=== PATIENT | male | born 1940 | race Hispanic/Latino ===

== ENCOUNTER → 2018-12-15 | Day surgery (SDC) | payer MEDICARE, OTHER ==
[2018-12-06 17:16] LABS: BASOPHILS # (AUTO) 0.1 (0.0-0.1); BASOPHILS % 0.9 % (0.0-1.0); EOSINOPHILS # (AUTO) 0.1 (0.0-0.4); EOSINOPHILS % 1.2 % (0.0-6.0); HEMATOCRIT 41.6 % (34.2-44.1); LYMPHOCYTES # (AUTO) 1.3 (1.0-3.2); LYMPHOCYTES % 12.1 % (18.0-39.1); MEAN CORPUSCULAR HEMOGLOBIN 30.7 pg (28-32); MEAN CORPUSCULAR HGB CONC 33.7 g/dL (31-35); MEAN CORPUSCULAR VOLUME 91.2 fL (81-99); MONOCYTES # (AUTO) 0.9 (0.2-0.8); MONOCYTES % 8.3 % (4.4-11.3); NEUTROPHILS % 77.1 % (38.7-80.0); PLATELET COUNT 268 x10e3/uL (140-360); RED BLOOD COUNT 4.56 x10e6/uL (3.6-5.1); RED CELL DISTRIBUTION WIDTH 12.6 % (11.7-14.4)
[2018-12-06 17:31] LABS: ANION GAP 15.1 mmol/L (8-16); BLOOD UREA NITROGEN 13 mg/dL (7-26); BUN/CREATININE RATIO 14 (6-25); CALCIUM 9.3 mg/dL (8.4-10.2); CARBON DIOXIDE 23 mmol/L (22-29); CHLORIDE 96 mmol/L (98-107); EST GLOMERULAR FILTRATION RATE > 60 ML/MIN (60-); GLUCOSE 252 mg/dL (74-118); POTASSIUM 4.1 mmol/L (3.5-5.1); SODIUM 130 mmol/L (136-145)
[~2018-12-15] MED LIST: ASPIR 8181 MG PO; BALANCED SALT SOLN (OPTH) 15 ML BTL IO ONE; BUPIVACAINE HC 0.75% PF 10ML VIAL INJ ONE; CHONDR SU A NA/HYALUR SOD 1 EACH KIT IO ONE; CO Q10200 MG PO; CYCLOPENTOLATE HCL 2% OPTH SOLN 2 ML BTL OP ONE; EPINEPHRINE HCL 1:1000 1ML 1 MG/ML AMP ONE; GATIFLOXACIN(OPTH) 5 ML LIQD ONE; GLYBURIDE5 MG PO; HEMOCYTE PLUS1 EACH PO; LIDOCAINE 2% /EPINEPHRINE 20 ML SDV INJ ONE; LIDOCAINE HCL 2% LOCAL INJ 5 ML SDV VIAL INJ ONE; LIDOCAINE HCL-PF 4% 40 MG/1 ML 5ML AMP ONE; LIPITOR20 MG PO; MIDAZOLAM HCL 2 MG/2 ML VIAL ONE; OMEGA 3 1,0001 EACH PO; PHENYLEPHRINE HCL 2 ML DROPS ONE; PILOCARPINE HCL(OPTH) 15 ML LIQD ONE; PLAVIX75 MG PO; POVIDONE IODINE 5% (OPTH) 30 ML BTL ONE; PRECOSE25 MG PO; PROPOFOL IV EMULSION 10 MG/ML 20 ML VIAL ONE; SIMVASTATIN40 MG PO; THIAMINE PO; TOBRAMYCIN/DEXAMETHASONE(OPTH) 3.5 GM TUBE ONE; TYLENOL WITH C1 EACH PO; VITAMIN D1000 UNI1 PO; ZANTAC300 MG PO
--- OUTSIDE RECORDS SUMMARY | 2018-12-15 07:20 | XMS REPORT | Clinical Summary ---
Author Author [facility] Organization [facility] Address Unknown Phone Unavailable Care Team Providers Care Charge Rn Name Role Phone Chin Christian MD PCP Allergies No Known Allergies Medications End Date Status Medication Sig Dispensed Refills Start Date Active aspirin-calcium carbonate Take by 0 81 mg-300 mg calcium(777 mouth. mg) tablet Active atorvastatin (LIPITOR) 40 0 MG tablet 8 Active ACCU-CHEK ANA PLUS TEST 0 STRP strip test strips 8 Active clopidogrel (PLAVIX) 75 0 mg tablet 8 Active glyBURIDE (DIABETA) 5 MG TAKE ONE (1) 0 tablet TABLET(S) BY 8 MOUTH EVERY TWELVE HOURS. Active glyburide-metformin TAKE TWO (2) 0 (GLUCOVANCE) 2.5-500 mg TABLET(S) BY 2 per tablet MOUTH TWICE A DAY WITH FOOD. Active LEVEMIR FLEXTOUCH U-100 0 INSULN 100 unit/mL (3 mL) 8 insulin pen Active insulin GLARGINE (LANTUS 10 units 0 U-100 INSULIN) 100 daily before unit/mL injection (vial) bed. Active HEMOCYTE-PLUS 106 mg TAKE ONE (1) 0 iron- 1 mg capsule CAPSULE(S) BY 8 MOUTH ONCE A DAY. Active lisinopril TAKE ONE (1) 0 (PRINIVIL,ZESTRIL) 5 mg TABLET(S) BY 3 tablet MOUTH ONCE A DAY. Active simvastatin (ZOCOR) 40 MG 0 tablet 8 Active Problems No known active problems Encounters Care Team Description Date Type Specialty Arin Roa MD Barotrauma, sequela (Primary Dx); Sensorineural hearing loss, bilateral 10/17/2018 Office Visit Otolaryngology after 12/14/2017 Social History Date Tobacco Use Types Packs/Day Years Used Never Smoker Smokeless Tobacco: Never Used Alcohol Use Drinks/Week oz/Week Comments No Alcohol Habits Answer Date Recorded How often do you have a drink containing alcohol? Never 10/17/2018 How many drinks containing alcohol do you have on Not asked a typical day when you are drinking? How often do you have six or more drinks on one Not asked occasion? Sex Assigned at Date Recorded Not on file Industry Job Start Date Occupation Not on file Not on file Not on file Travel End Travel History Travel Start No recent travel history available. Last Filed Vital Signs Time Taken Vital Sign Reading 10/17/2018 10:17 AM MD OPHTHALMOLOGIST Blood Pressure 158/81 10/17/2018 10:17 AM MD OPHTHALMOLOGIST Pulse 83 - Temperature - - Respiratory Rate - - Oxygen Saturation - - Inhaled Oxygen - Concentration 10/17/2018 10:17 AM MD OPHTHALMOLOGIST Weight 66.2 kg (146 lb) 10/17/2018 10:17 AM MD OPHTHALMOLOGIST Height 165.1 cm (5' 5") 10/17/2018 10:17 AM MD OPHTHALMOLOGIST Body Mass Index 24.3 Plan of Treatment Health Maintenance Due Date Last Done Comments SHINGLES VACCINES (1 of 1991 2) PNEUMOCOCCAL-13 2006 INFLUENZA VACCINE 06/08/2018 08/08/2012 PNEUMOCOCCAL Completed 02/11/2007 POLYSACCHARIDE VACCINE AGE 65 AND OVER Results Not on fileafter 12/14/2017 Insurance Payer Benefit Subscriber ID Type Phone Address Plan / Group [employer] xxxxxxxxx O [facility] Advance Directives Patient has advance care planning documents on file. For more information, candi ortiz contact: Ari Young [address] [place] [address]
--- OUTSIDE RECORDS SUMMARY | 2018-12-15 07:21 | XMS REPORT ---
Author Author Chin Christian [facility] eClinicalWorks Address Unknown Phone Unavailable Care Team Providers Care Coverstitch Elastic Attacher Name Role Phone Chin Christian CP Unavailable Allergies, Adverse Reactions, Alerts Substance Reaction Event Type N.K.D.A. 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 Active Problem Type 2 diabetes 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 Active Assessment Peripheral vascular disease in diabetes mellitus E11.51 Active Problem Peripheral vascular disease in diabetes mellitus E11.51 Active Problem S/P AVR (aortic valve replacement) Z95.2 Active Problem Nonrheumatic aortic valve stenosis I35.0 Active Problem 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 Active Problem Ulcer L98.499 Active Problem Essential (primary) hypertension I10 Active Problem Diverticulosis of large intestine without hemorrhage K57.30 Active Assessment Essential (primary) hypertension I10 Active Assessment Gangrene of right foot I96 Active Problem Coronary artery disease involving [place] coronary artery, angina presence unspecified, unspecified whether [place] or transplanted heart I25.10 Active Problem 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 Active Problem Left bundle branch block I44.7 Active Problem Hx of heart artery stent Z95.5 Active Problem 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 by examination, associated with type 2 diabetes mellitus E11.319 Active Problem Aortic stenosis I35.0 Active Medications Medication Code System Code Instructions Start Date End Date Status Dosage Lantus SoloStar [facility] 14340787836 100 UNIT/ML Subcutaneous once every night Active inject 15 units Precose [facility] 12619431319 25 MG Orally tid ac Active as directed Co Q 10 [facility] [address]271 200 MG Orally Once a day Active 1 capsule with a meal Aspirin ND 89429376514 325 MG Orally Once a day Active 1 tablet Zantac [facility] 38212786921 150 MG Orally twice a day (bid) Jun 21, 2017 Active 1 tablet at bedtime GlyBURIDE [facility] 99917394506 5 MG Active TAKE TWO (2) TABLET(S) BY MOUTH TWICE A DAY. Thiamine HCl ND 0 500 MG Orally Active not defined Nitroglycerin [facility] 35981499565 0.2 MG/HR Transdermal Sep 21, 2017 Active as directed Tramadol HCl [facility] 59237424402 50 MG Orally as needed (prn) Active 1 tablet GlyBURIDE [facility] [address]-95 10 mg PO twice a day (bid) Active 1 tablet Lipitor [facility] 42022299619 40 MG Orally Once a day Oct 08, 2017 Active 1 tablet Cholecalciferol [facility] [address]-13 1000 UNIT Orally Once a day Active 1 capsule [place] 3 [facility] 78562319317 1000 MG Orally Once a day Active 1 capsule Metoprolol Tartrate [facility] 46430564028 25 MG Orally Twice a day Active TAKE ONE (1) TABLET(S) BY MOUTH EVERY TWELVE HOURS. Accu-Chek Softclix Lancets [facility] 49306859791 - Active USE INSTRUCTED THREE TIMES DAILY Clopidogrel Bisulfate [facility] 16875049727 75 MG Orally Once a day Active 1 tablet Vital Signs Date/Time: 2017 BMI 26.20 Index Weight 159.4 lbs Height 65.4 in Temperature 98.2 F Cardiac Monitoring Heart Rate 97 /min Blood Pressure Diastolic 62 mm Hg Blood Pressure Systolic 130 mm Hg Results No Known Results Summary Purpose eClinicalWorks Submission
--- OUTSIDE RECORDS SUMMARY | 2018-12-15 07:21 | XMS REPORT ---
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 Active Problem Ulcer L98.499 Active Problem Type 2 diabetes 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 Active Problem 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 Problem Vertebral artery stenosis with cerebral infarction I63.219 Active Problem Nonrheumatic aortic valve stenosis I35.0 Active Problem S/P AVR (aortic valve replacement) Z95.2 Active Problem 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 by examination, associated with type 2 diabetes mellitus E11.319 Active Problem 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 [address]-29 2 % Externally TWICE a day Jun 23, 2017 Jul 07, 2017 Active 1 application to affected area Results No Known Results Summary Purpose eClinicalWorks Submission
--- OUTSIDE RECORDS SUMMARY | 2018-12-15 07:21 | XMS REPORT ---
Author Author Chin Christian [facility] eClinicalWorks Address Unknown Phone Unavailable Care Team Providers Care Civil Draftsman Name Role Phone Chin Christian CP Unavailable [...] limited to breakdown of skin L97.501 Active Assessment Non-pressure chronic ulcer of other part of [...] S/P AVR (aortic valve replacement) Z95.2 Active Assessment Essential (primary) hypertension I10 Active Assessment Cellulitis of right toe L03.031 Active Assessment Type 2 diabetes 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 Active Assessment Coronary artery disease involving [place] coronary artery, angina presence unspecified, unspecified whether [place] or transplanted heart I25.10 Active Problem 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 by examination, associated with type 2 diabetes mellitus E11.319 Active Problem 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 Active Problem Diverticulosis of large intestine without hemorrhage K57.30 Active Problem Coronary artery disease involving [place] coronary artery, angina presence unspecified, unspecified whether [place] or transplanted heart I25.10 Active Problem Left bundle branch block I44.7 Active Problem Essential (primary) hypertension I10 Active Medications Medication Code System Code Instructions Start Date End Date Status Dosage Naprosyn [facility] [address]-14 500 MG Orally every 12 hrs Jun 21, 2017 Jul 06, 2017 Active 1 tablet as needed Keflex [facility] [address]-45 500 MG Orally three times a day (tid) Jun 21, 2017 Jul 01, 2017 Active 1 capsule Clopidogrel Bisulfate [facility] [address]-52 75 MG Orally Once a day Active 1 tablet Simvastatin [facility] 53961402275 40 MG Active TAKE ONE (1) TABLET(S) BY MOUTH EVERY NIGHT. Cholecalciferol [facility] [address]-17 1000 UNIT Orally Once a day Active 1 capsule GlyBURIDE [facility] 24708356843 5 MG Orally Once a day Active TAKE TWO (2) TABLET(S) BY MOUTH TWICE A DAY. Thiamine HCl [facility] 0 500 MG Orally Active not defined [place] 3 [facility] [address]60 1000 MG Orally Once a day Active 1 capsule GlyBURIDE [facility] [address]-58 10 mg PO twice a day (bid) Active 1 tablet Zantac [facility] [address]-62 150 MG Orally twice a day (bid) Jun 21, 2017 Active 1 tablet at bedtime Precose [facility] 65435224193 25 MG Orally tid ac Active as directed Lantus SoloStar [facility] [address]-12 100 UNIT/ML Subcutaneous once every night Active inject 15 units Tramadol HCl [facility] [address]-77 50 MG Orally as needed (prn) Active 1 tablet Co Q 10 [facility] [address]6727-[address]683 200 MG Orally Once a day Active 1 capsule with a meal Accu-Chek Softclix Lancets [facility] 21700922711 - Active USE INSTRUCTED THREE TIMES DAILY Metoprolol Tartrate [facility] 05949335847 25 MG Orally Twice a day Active TAKE ONE (1) TABLET(S) BY MOUTH EVERY TWELVE HOURS. Aspirin [facility] [address]-75 325 MG Orally Once a day Active 1 tablet Vital Signs Date/Time: Jun 21, 2017 BMI 26.30 Index Weight 160.0 lbs Height 65.4 in Temperature 98.0 F Cardiac Monitoring Heart Rate 81 /min Blood Pressure Diastolic 69 mm Hg Blood Pressure Systolic 133 mm Hg Results No Known Results Summary Purpose eClinicalWorks Submission
--- OUTSIDE RECORDS SUMMARY | 2018-12-15 07:21 | XMS REPORT ---
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 Problem Peripheral vascular disease in diabetes mellitus E11.51 Active Problem Gangrene of right foot I96 Active Problem 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 Active Problem Ulcer L98.499 Active Problem S/P AVR (aortic valve replacement) Z95.2 Active Problem Type 2 diabetes 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 Active Problem 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 Active Problem Diverticulosis of large intestine without hemorrhage K57.30 Active Problem Left bundle branch block I44.7 Active Problem Essential (primary) hypertension I10 Active Problem 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 Active Problem Hx of heart artery stent Z95.5 Active Problem 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 by examination, associated with type 2 diabetes mellitus E11.319 Active Problem Aortic stenosis I35.0 Active Problem Coronary artery disease involving [place] coronary artery, angina presence unspecified, unspecified whether [place] or transplanted heart I25.10 Active Problem Mixed hyperlipidemia E78.2 Active Medications Medication Code System Code Instructions Start Date End Date Status Dosage Precose ND 41501733542 25 MG Orally tid ac Active as directed GlyBURIDE N[facility] 52419605141 5 MG Active TAKE ONE (1) TABLET(S) BY MOUTH EVERY TWELVE HOURS. Results No Known Results Summary Purpose eClinicalWorks Submission
--- OUTSIDE RECORDS SUMMARY | 2018-12-15 07:21 | XMS REPORT ---
Author Author Chin Christian [facility] eClinicalWorks Address Unknown Phone Unavailable Care Team Providers Care Family Court Justice Name Role Phone Chin Christian CP Unavailable Allergies, Adverse Reactions, Alerts Substance Reaction Event Type N.K.D.A. 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 Assessment Nonrheumatic aortic valve stenosis I35.0 Active Assessment Vertebral artery stenosis with cerebral infarction I63.219 Active Assessment Hx of heart artery stent Z95.5 Active Assessment Mixed hyperlipidemia E78.2 Active Assessment Aortic stenosis I35.0 Active Assessment Diverticulosis of large intestine without hemorrhage K57.30 Active Problem Aortic stenosis I35.0 Active Assessment Left bundle branch block I44.7 Active Problem Mixed hyperlipidemia E78.2 Active Assessment 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 by examination, associated with type 2 diabetes mellitus E11.319 Active Problem Vertebral artery stenosis with cerebral infarction I63.219 Active Problem Nonrheumatic aortic valve stenosis I35.0 Active Problem 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 Problem Peripheral vascular disease in diabetes mellitus E11.51 Active Problem Gangrene of right foot I96 Active Assessment Essential (primary) hypertension I10 Active Assessment Coronary artery disease involving [place] coronary artery, angina presence unspecified, unspecified whether [place] or transplanted heart I25.10 Active Problem 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 Active Assessment 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 Active Problem Ulcer L98.499 Active Problem S/P AVR (aortic valve replacement) Z95.2 Active Problem Type 2 diabetes 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 Active Problem 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 Active Assessment 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 Active Problem Diverticulosis of large intestine without hemorrhage K57.30 Active Assessment Peripheral vascular disease in diabetes mellitus E11.51 Active Problem Left bundle branch block I44.7 Active Assessment Encounter for general adult medical examination with abnormal findings Z00.01 Active Problem Essential (primary) hypertension I10 Active Problem 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 85792229176 325 MG Orally Once a day Active 1 tablet GlyBURIDE [facility] [address]-50 10 mg PO twice a day (bid) Active 1 tablet Lipitor [facility] 43573348233 40 MG Orally Once a day Oct 08, 2017 Active 1 tablet Clopidogrel Bisulfate [facility] 55972232388 75 MG Orally Once a day Active 1 tablet GlyBURIDE [facility] [address]-92 5 MG twice a day (bid) Active not defined Metoprolol Tartrate [facility] 24756916454 25 MG Orally Twice a day Active TAKE ONE (1) TABLET(S) BY MOUTH EVERY TWELVE HOURS. Zantac [facility] 12549917718 150 MG Orally twice a day (bid) Jun 21, 2017 Active 1 tablet at bedtime Precose [facility] 85809514030 25 MG Orally tid ac Active as directed [place] [address] [facility] 04826019577 1000 MG Orally Once a day Active 1 capsule Cholecalciferol [facility] [address]-63 1000 UNIT Orally Once a day Active 1 capsule BD Insulin Syringe Ultrafine [facility] 16602715684 31G X 5/16 intramuscularly twice a day (bid) Nov 26, 2017 Active as directed Lantus SoloStar [facility] 15778771496 100 UNIT/ML Subcutaneous once every night Active inject 15 units Thiamine HCl [facility] 0 500 MG Orally Active not defined Nitroglycerin [facility] 81847778458 0.2 MG/HR Transdermal Sep 21, 2017 Active as directed Tramadol HCl [facility] 06213257331 50 MG Orally as needed (prn) Active 1 tablet Accu-Chek Softclix Lancets [facility] 10842366407 - Active USE INSTRUCTED THREE TIMES DAILY Co Q 10 NDC 62146-[address]25 200 MG Orally Once a day Active 1 capsule with a meal Vital Signs Date/Time: Dec 06, 2017 BMI 24.31 Index Weight 147.9 lbs Height 65.4 in Temperature 98.0 F Cardiac Monitoring Heart Rate 101 /min Blood Pressure Diastolic 63 mm Hg Blood Pressure Systolic 115 mm Hg Results No Known Results Summary Purpose eClinicalWorks Submission
--- OUTSIDE RECORDS SUMMARY | 2018-12-15 07:21 | XMS REPORT ---
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 Problem Vertebral artery stenosis with cerebral infarction I63.219 Active Problem Gangrene of right foot I96 Active Problem Type 2 diabetes 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 Active Problem Peripheral vascular disease in diabetes [...] K57.30 Active Problem Coronary artery disease involving [place] coronary artery, angina presence unspecified, unspecified whether [place] or transplanted heart I25.10 Active Problem Diabetic [...] Instructions Start Date End Date Status Dosage BD Insulin Syringe Ultrafine [facility][NOTE 3] 25345064948 31G X 5/16" 0.5 ML intramuscularly twice a day (bid) Nov 26, 2017 Active as directed Results No Known Results Summary Purpose eClinicalWorks Submission
--- OUTSIDE RECORDS SUMMARY | 2018-12-15 07:21 | XMS REPORT ---
Author Author Chin Christian [facility] eClinicalWorks Address Unknown Phone Unavailable Care Team Providers Care Criminalist Technician Name Role Phone Chin Christian CP Unavailable Allergies, Adverse Reactions, Alerts Substance Reaction Event Type N.K.D.A. 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 Problem 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 by examination, associated with type 2 diabetes mellitus E11.319 Active Assessment Vertebral artery stenosis with cerebral infarction I63.219 Active Problem 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 Active Problem Essential (primary) hypertension I10 Active Problem Coronary artery disease involving [place] coronary artery, angina presence unspecified, unspecified whether [place] or transplanted heart I25.10 Active Problem S/P AVR (aortic valve replacement) Z95.2 Active Problem 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 Assessment Aortic stenosis I35.0 Active Assessment Mixed hyperlipidemia E78.2 Active Problem Nonrheumatic aortic valve stenosis I35.0 Active Assessment Hx of heart artery stent Z95.5 Active Problem Mixed hyperlipidemia E78.2 Active Problem Hx of heart artery stent Z95.5 Active Problem Vertebral artery stenosis with cerebral infarction I63.219 Active Problem Aortic stenosis I35.0 Active Assessment 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 by examination, associated with type 2 diabetes mellitus E11.319 Active Assessment 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 Active Assessment Diverticulosis of large intestine without hemorrhage K57.30 Active Assessment Left bundle branch block I44.7 Active Assessment Nonrheumatic aortic valve stenosis I35.0 Active Problem Diverticulosis of large intestine without hemorrhage K57.30 Active Assessment Coronary artery disease involving [place] coronary artery, angina presence unspecified, unspecified whether [place] or transplanted heart I25.10 Active Assessment Essential (primary) hypertension I10 Active Medications Medication Code System Code Instructions Start Date End Date Status Dosage Cholecalciferol [facility] [address]-06 1000 UNIT Orally Once a day Active 1 capsule Clopidogrel Bisulfate [facility] [address]-82 75 MG Orally Once a day Active 1 tablet Lantus SoloStar [facility] [address]-59 100 UNIT/ML Subcutaneous once every night Active inject 10 units Simvastatin [facility] 48527662866 40 MG Active TAKE ONE (1) TABLET(S) BY MOUTH EVERY NIGHT. Furosemide [facility] [address]-84 20 mg Orally Once a day Active 1 tablet aspirin 81 mg tablet [facility] 0 81 by oral route Nov 30, 2012 Active take Acarbose [facility] [address]-16 25 MG Orally three times a day (tid) Active 1 tablet [place] 3 [facility] [address]483 1000 MG Orally Once a day Active 1 capsule Precose [facility] 76411355205 25 MG Orally tid ac Active as directed Thiamine HCl [facility] 0 500 MG Orally Active not defined Pen [place] [facility] [address]-72 31G X 6 MM SQ once a day Dx: E11.9 Jul 17, 2016 Active Inject Carvedilol [facility] [address]-11 12.5 MG Orally twice a day (bid) Active 1 tablet Isosorbide Dinitrate [facility] [address]-16 30 MG Orally Twice a day Active 1 tablet Clopidogrel Bisulfate [facility] [address]-45 75 MG Orally Once a day Active 1 tablet Aspirin [facility] [address]-92 325 MG Orally Once a day Active 1 tablet Metoprolol Tartrate [facility] [address]-03 25 MG Orally Twice a day Active 1 tablet with food Vitamin B-12 [facility] [address]-54 500 MCG Orally Once a day Active 1 tablet GlyBURIDE [facility] [address]-71 10 mg PO twice a day (bid) Active 1 tablet Tramadol HCl [facility] [address]-20 50 MG Orally as needed (prn) Active 1 tablet Accu-Chek Polina Plus [facility] 83472235501 Active USE DIRECTED THREE TIMES A DAY. Januvia [facility] [address]-81 100 MG twice a day (bid) Active 2 tablets Zantac [facility] [address]-95 150 MG Orally Twice a day January 30, 2016 Active 1 tablet Co Q 10 [facility] 9[address]375 200 MG Orally Once a day Active 1 capsule with a meal Levemir FlexTouch [facility] [address]-42 100 UNIT/ML 10 units Subcutaneous once every night Jul 03, 2016 Active as directed Accu-Chek Polina Plus [facility] [address]-73 . as directed Active USE DIRECTED THREE TIMES A DAY. Vital Signs Date/Time: February 04, 2017 BMI 26.17 Index Weight 159.2 lbs Height 65.4 in Temperature 98.3 F Cardiac Monitoring Heart Rate US ALL /min Blood Pressure Diastolic 55 mm Hg Blood Pressure Systolic 108 mm Hg Results No Known Results Summary Purpose eClinicalWorks Submission
--- OUTSIDE RECORDS SUMMARY | 2018-12-15 07:21 | XMS REPORT ---
Author Author Chin Christian [facility] eClinicalWorks Address Unknown Phone Unavailable Care Team Providers Care Rn Telephonic Name Role Phone Chin Christian CP Unavailable Allergies, Adverse Reactions, Alerts Substance Reaction Event Type N.K.D.A. 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 Active Problem 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 Problem Vertebral artery stenosis with cerebral infarction I63.219 Active Problem S/P AVR (aortic valve replacement) Z95.2 Active Problem Nonrheumatic aortic valve stenosis I35.0 Active Assessment Essential (primary) hypertension I10 Active Assessment Ischemic foot I99.8 Active Assessment 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 Active Assessment Coronary artery disease involving [place] coronary artery, angina presence unspecified, unspecified whether [place] or transplanted heart I25.10 Active Problem Left bundle branch block I44.7 Active Problem 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 by examination, associated with type 2 diabetes mellitus E11.319 Active Problem Essential (primary) hypertension I10 Active Problem Coronary artery disease involving [place] coronary artery, angina presence unspecified, unspecified whether [place] or transplanted heart I25.10 Active Problem Diverticulosis of large intestine without hemorrhage K57.30 Active Problem 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 Cholecalciferol [facility] [address]-54 1000 UNIT Orally Once a day Active 1 capsule Precose [facility] 98943673937 25 MG Orally tid ac Active as directed Metoprolol Tartrate [facility] 28931840546 25 MG Orally Twice a day Active TAKE ONE (1) TABLET(S) BY MOUTH EVERY TWELVE HOURS. Co Q 10 [facility] [address]30 200 MG Orally Once a day Active 1 capsule with a meal Zantac [facility] 08015120428 150 MG Orally twice a day (bid) Jun 21, 2017 Active 1 tablet at bedtime Clopidogrel Bisulfate [facility] 85481099409 75 MG Orally Once a day Active 1 tablet Simvastatin [facility] 44434279037 40 MG Active TAKE ONE (1) TABLET(S) BY MOUTH EVERY NIGHT. Lantus SoloStar [facility] 48176229460 100 UNIT/ML Subcutaneous once every night Active inject 15 units Aspirin [facility] 22227726359 325 MG Orally Once a day Active 1 tablet Thiamine HCl ND 0 500 MG Orally Active not defined Accu-Chek Softclix Lancets [facility] 90014350378 - Active USE INSTRUCTED THREE TIMES DAILY Nitroglycerin [facility] 64895066856 0.2 MG/HR Transdermal Sep 21, 2017 Active as directed [place] 3 [facility] 71665511807 1000 MG Orally Once a day Active 1 capsule Vital Signs Date/Time: Sep 21, 2017 BMI 26.23 Index Weight 159.6 lbs Height 65.4 in Temperature 97.4 F Cardiac Monitoring Heart Rate 94 /min Blood Pressure Diastolic 64 mm Hg Blood Pressure Systolic 123 mm Hg Results No Known Results Immunizations Vaccine Administration Date Influenza Vaccine Sep 21, 2017 Summary Purpose eClinicalWorks Submission
--- OUTSIDE RECORDS SUMMARY | 2018-12-15 07:21 | XMS REPORT ---
Author Author Chin Christian [facility] eClinicalWorks Address Unknown Phone Unavailable Care Team Providers Care Child Welfare Assistant Name Role Phone Chin Christian CP Unavailable Allergies, Adverse Reactions, Alerts Substance Reaction Event Type N.K.D.A. 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 Problem Essential (primary) hypertension I10 Active Problem Coronary artery disease involving [place] coronary artery, angina presence unspecified, unspecified whether [place] or transplanted heart I25.10 Active Problem Mixed hyperlipidemia E78.2 Active Problem Hx of heart artery stent Z95.5 Active Assessment Essential (primary) hypertension I10 Active Assessment Aortic stenosis I35.0 Active Assessment Vertebral artery stenosis with cerebral infarction I63.219 Active Assessment 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 Active Assessment Mixed hyperlipidemia E78.2 Active Problem Diverticulosis of large intestine without hemorrhage K57.30 Active Medications Medication Code System Code Instructions Start Date End Date Status Dosage Carvedilol [facility] [place] [address]-97 12.5 MG Orally twice a day (bid) Active 1 tablet Levemir FlexTouch [facility] [place] [address]-57 100 UNIT/ML 10 units Subcutaneous once every night Jul 03, 2016 Active as directed Clopidogrel Bisulfate [facility] [place] [address]-28 75 MG Orally Once a day Active 1 tablet Zantac [facility] [place] [address]-30 150 MG Orally Twice a day January 30, 2016 Active 1 tablet Vitamin B-12 [facility] [place] [address]-56 500 MCG Orally Once a day Active 1 tablet Januvia [facility] [place] [address]-19 100 MG twice a day (bid) Active 2 tablets aspirin 81 mg tablet [facility] [place] 0 81 by oral route Nov 30, 2012 Active take Isosorbide Dinitrate [facility] [place] [address]-31 30 MG Orally Twice a day Active 1 tablet GlyBURIDE [facility] [place] [address]-47 10 mg PO twice a day (bid) Active 1 tablet Precose [facility] [place] [address]-99 25 MG Orally tid ac June 05, 2016 Active as directed Accu-Chek Polina Plus [facility] [place] 27401634650 Active USE DIRECTED THREE TIMES A DAY. Simvastatin [facility] [place] 15625427794 40 MG Active TAKE ONE (1) TABLET(S) BY MOUTH EVERY NIGHT. Cyanocobalamin [facility] [place] 18551278321 1000 MCG/ML Active INJECT ONE (1) ML(S) INTRAMUSCULARLY EVERY 1 MONTH. Pen [place] [facility] [place] [address]-69 31G X 6 MM SQ once a day Dx: E11.9 Jul 17, 2016 Active Inject Furosemide [facility] [place] [address]-92 20 mg Orally Once a day Active 1 tablet Accu-Chek Polina Plus [facility] [place] [address]-00 . as directed Active USE DIRECTED THREE TIMES A DAY. Vital Signs Date/Time: Nov 04, 2016 BMI 26.13 Index Weight 159.0 lbs Height 65.4 in Temperature 97.8 F Cardiac Monitoring Heart Rate 81 /min Blood Pressure Diastolic 73 mm Hg Blood Pressure Systolic 125 mm Hg Results No Known Results Summary Purpose eClinicalWorks Submission
--- OUTSIDE RECORDS SUMMARY | 2018-12-15 07:21 | XMS REPORT ---
Author Author Chin Christian Organization eClinicalWorks Address Unknown Phone Unavailable Care Team Providers Care Bobbin Sorter Name Role Phone Chin Christian CP Unavailable Allergies No Known Allergies Problems Problem Type Condition Code Onset Dates Condition Status Problem Coronary artery disease involving [place] coronary artery, angina presence unspecified, unspecified whether [place] or transplanted heart I25.10 Active Problem Hx of heart artery stent Z95.5 Active Problem Essential (primary) hypertension I10 Active Problem Nonrheumatic aortic valve stenosis I35.0 Active Problem S/P AVR (aortic valve replacement) Z95.2 Active Problem Ulcer L98.499 Active Problem Aortic stenosis I35.0 Active Problem Mixed hyperlipidemia E78.2 Active Problem 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 Problem Vertebral artery stenosis with cerebral infarction I63.219 Active Problem Diverticulosis of large intestine without hemorrhage K57.30 Active Problem Left bundle branch block I44.7 Active Problem 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 by examination, associated with type 2 diabetes mellitus E11.319 Active Problem 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 Metoprolol Tartrate [facility] 00348406170 25 MG Orally Twice a day Active TAKE ONE (1) TABLET(S) BY MOUTH EVERY TWELVE HOURS. Results No Known Results Summary Purpose eClinicalWorks Submission
--- OUTSIDE RECORDS SUMMARY | 2018-12-15 07:21 | XMS REPORT ---
Author Author Chin Christian Organization eClinicalWorks Address Unknown Phone Unavailable Care Team Providers Care Business Management Intern Name Role Phone Chin Christian CP Unavailable Allergies No Known Allergies Problems Problem Type Condition Code Onset Dates Condition Status Problem Coronary artery disease involving [place] coronary artery, angina presence unspecified, unspecified whether [place] or transplanted heart I25.10 Active Problem Hx [...] Date End Date Status Dosage Lantus SoloStar [facility] [address]-79 100 UNIT/ML Subcutaneous once every night Active inject 20 units Results No Known Results Summary Purpose eClinicalWorks Submission
--- OUTSIDE RECORDS SUMMARY | 2018-12-15 07:21 | XMS REPORT | Continuity of Care Document ---
Author Author [facility] Interface Address Unknown Phone Unavailable Problems Problem Status Onset Date Classification Date Reported Comments Source Coronary artery disease involving [place] coronary artery, angina presence unspecified, unspecified whether [place] or transplanted heart Active Diagnosis 12/08/2018 2.16.840.1.334322.4.391.11.22627 Hx of heart artery stent Active Diagnosis 12/08/2018 2.16.840.1.844093.4.391.11.83467 Essential hypertension Active Diagnosis 12/08/2018 2.16.840.1.476325.4.391.11.95869 Nonrheumatic aortic valve stenosis Active Problem 10/07/2018 2.16.840.1.293099.4.391.11.87901 S/P AVR Active Problem 12/08/2018 2.16.840.1.862465.4.391.11.35978 Ulcer Active Problem 10/07/2018 2.16.840.1.979373.4.391.11.49103 Aortic stenosis Active Diagnosis 12/08/2018 2.16.840.1.442160.4.391.11.32608 Mixed hyperlipidemia Active Diagnosis 12/08/2018 2.16.840.1.638740.4.391.11.01065 Combined systolic and diastolic HF Active Diagnosis 12/08/2018 2.16.840.1.462512.4.391.11.29259 Vertebral artery stenosis with cerebral infarction Active Diagnosis 12/08/2018 2.16.840.1.407667.4.391.11.52300 Diverticulosis of large intestine without hemorrhage Active Diagnosis 12/08/2018 2.16.840.1.491380.4.391.11.33246 Left bundle branch block Active Diagnosis 12/08/2018 2.16.840.1.308067.4.391.11.79101 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 by examination, associated with type 2 diabetes mellitus Active Diagnosis 12/08/2018 2.16.840.1.490672.4.391.11.94549 Diabetic peripheral neuropathy associated with type 2 diabetes mellitus Active Diagnosis 12/08/2018 2.16.840.1.041611.4.391.11.36762 Non-pressure chronic ulcer of other part of unspecified foot limited to breakdown of skin Active Diagnosis 12/08/2018 2.16.840.1.607945.4.391.11.36078 Type 2 diabetes mellitus with foot ulcer Active Problem 12/08/2018 2.16.840.1.222288.4.391.11.33431 Cellulitis of right toe Active Diagnosis 06/24/2017 2.16.840.1.274105.4.391..76580 Open wound Active Diagnosis 04/29/2017 2.16.840.1.292765.4.391.11.15174 Encounter for immunization Active Diagnosis 09/25/2017 2.16.840.1.368358.4.391.11.60523 Ischemic foot Active Diagnosis 09/25/2017 2.16.840.1.248406.4.391.11.94736 Other injury of unspecified body region Active Diagnosis 06/24/2017 2.16.840.1.724576.4.391.11.15901 BMI 26.0-26.9,adult Active Diagnosis 02/10/2017 2.16.840.1.082551.4.391.11.25724 Encounter for general adult medical examination with abnormal findings Active Diagnosis 12/14/2017 2.16.840.1.897406.4.391.11.82246 Anticoagulant long-term use Active Problem 07/14/2018 [facility] correction current use of insulin Active Problem 07/14/2018 [facility] Type 2 diabetes mellitus with diabetic peripheral angiopathy with gangrene Active Diagnosis 07/14/2018 [facility] History of leg amputation Active Problem 07/14/2018 [facility] Peripheral arterial disease Active Diagnosis 07/14/2018 [facility] Gangrene of foot Active Diagnosis 07/14/2018 [facility] Gangrene of right foot Active Problem 10/07/2018 2.16.840.1.061027.4.391.11.52426 Peripheral vascular disease in diabetes mellitus Active Problem 12/08/2018 2.16.840.1.290808.4.391.11.67416 Status post below knee amputation of right lower extremity Active Problem 12/08/2018 2.16.840.1.874230.4.39111.79113 Osteomyelitis of metatarsal Active Problem 07/14/2018 [facility] Other osteomyelitis of left foot Active Problem 10/07/2018 2.16.840.1.720342.4.391.11.11052 Gastroesophageal reflux disease, esophagitis presence not specified Active Problem 12/08/2018 2.16.840.1.681408.4.391.11.32273 Bilateral hearing loss, unspecified hearing loss type Active Problem 12/08/2018 2.16.840.1.501506.4.391.11.38701 TIA Active Problem 10/07/2018 2.16.840.1.793709.4.39111.41902 Anemia due to chronic blood loss Active Diagnosis 12/08/2018 2.16.840.1.033635.4.391.11.97489 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 other type, unspecified laterality Active Diagnosis 12/08/2018 2.16.840.1.036309.4.391.11.85907 Otalgia, bilateral Active Diagnosis 10/07/2018 2.16.840.1.150376.4.391.11.48064 Other chronic pain Active Problem 12/08/2018 2.16.840.1.298081.4.391.11.55612 Hx TIA/stroke w/o resid Active Diagnosis 12/08/2018 2.16.840.1.335428.4.391.11.67931 Encounter for annual general medical examination with abnormal findings in adult Active Diagnosis 12/08/2018 2.16.840.1.800115.4.391.11.05055 Encounter for screening Active Diagnosis 12/08/2018 2.16.840.1.668995.4.391.11.05682 Drug-induced diarrhea Active Diagnosis 07/23/2018 2.16.840.1.686177.4.391.11.59601 Medications Medication Details Route Status Patient Instructions Ordering Provider Order Date Source Zantac 1 tablet Orally Active 300 MG Orally Once a day Gino 08/31/2018 2.16.840.1.922850.4.391.11.43181 Fluconazole 1 tablet Orally Active 200 MG Orally Once a day [facility] 07/13/2018 [facility] Tylenol/Codeine #3 1 tablet as needed Orally Active 300-30 MG Orally as needed (prn) Gino 07/12/2018 2.16.840.1.052614.4.391..17914 Hemocyte Plus 1 capsule Orally Active 106-1 MG Orally three times a week as needed (prn) Gino 05/18/2018 2.16.840.1.181648.4.391.11.65952 Levemir 15 units in the morning and 15 units at night Subcutaneous Active 100 UNIT/ML Subcutaneous twice a day (bid) Gino 02/17/2018 2.16.840.1.865015.4.391..33053 Levemir 15 units in the morning and 5 units at night Subcutaneous Active 100 UNIT/ML Subcutaneous twice a day (bid) Gino 02/17/2018 2.16.840.1.638845.4.391.11.28364 Levemir FlexTouch as directed 15 units Subcutaneous Active 100 UNIT/ML 15 units Subcutaneous once every night Gino 02/15/2018 2.16.840.1.449548.4.391.11.36772 BD Insulin Syringe Ultrafine as directed intramuscularly Active 31G X 5/16 intramuscularly twice a day (bid) Gino 11/26/2017 2.16.840.1.695759.4.391.11.65145 Lipitor 1 tablet Orally Active 40 MG Orally Once a day Gino 10/08/2017 2.16.840.1.163992.4.391.11.04876 Nitroglycerin as directed Transdermal Active 0.2 MG/HR Transdermal Gino 09/21/2017 2.16.840.1.637812.4.391.11.42585 Mupirocin 1 application to affected area Externally Active 2 % Externally TWICE a day Gino 06/23/2017 2.16.840.1.388658.4.391.11.05702 Naprosyn 1 tablet as needed Orally Active 500 MG Orally every 12 hrs Gino 06/21/2017 2.16.840.1.635419.4.391.11.63847 Keflex 1 capsule Orally Active 500 MG Orally three times a day (tid) Gino 06/21/2017 2.16.840.1.459325.4.391.11.79922 Zantac 1 tablet at bedtime Orally Active 150 MG Orally twice a day (bid) Gino 06/21/2017 2.16.840.1.062648.4.391..40202 Zantac 1 tablet at bedtime Orally Active 150 MG Orally twice a day (bid) Gino 06/21/2017 2.16.840.1.397809.4.391.11.51669 Keflex 1 capsule Orally Active 500 MG Orally every 12 hrs Gino 06/07/2017 2.16.840.1.095811.4.391.11.11351 [place] Inject SQ Active 31G X 6 MM SQ once a day Dx: E11.9 Gino 07/17/2016 2.16.840.1.575281.4.391..31405 Levemir FlexTouch as directed 10 units Subcutaneous Active 100 UNIT/ML 10 units Subcutaneous once every night Gino 07/03/2016 2.16.840.1.916663.4.391.11.46189 Precose as directed Orally Active 25 MG Orally tid ac Gino 06/05/2016 2.16.840.1.973953.4.391.11.68088 Zantac 1 tablet Orally Active 150 MG Orally Twice a day Gino 01/30/2016 2.16.840.1.553152.4.391.11.95726 aspirin 81 mg tablet take by oral route Active 81 by oral route Gino 11/30/2012 2.16.840.1.148603.4.391 Lantus SoloStar inject 15 units Subcutaneous Active 100 UNIT/ML Subcutaneous once every night Gino 12.24.830.1.759370.4.391 GlyBURIDE TAKE ONE (1) TABLET(S) BY MOUTH EVERY TWELVE HOURS. NA Active 5 MG Gino 840.1.481193.4.391 Metoprolol Tartrate TAKE ONE (1) TABLET(S) BY MOUTH EVERY TWELVE HOURS. Orally Active 25 MG Orally Twice a day Gino 12.24.830.1.611059.4.391 Clopidogrel Bisulfate 1 tablet Orally Active 75 MG Orally Once a day Gino 12.24.830.1.527739.4.391 Simvastatin TAKE ONE (1) TABLET(S) BY MOUTH EVERY NIGHT. NA Active 40 MG Gino 12.24.830.1.256149.4391 Cholecalciferol 1 capsule Orally Active 1000 UNIT Orally Once a day Gino 12.24.830.1.451349.4391,[facility] Thiamine HCl not defined Orally Active 500 MG Orally Gino 12.24.830.1.632655.4.391,[facility] Webb 3 1 capsule Orally Active 1000 MG Orally Once a day Gino 12.24.830.1.337645.4.391 GlyBURIDE 1 tablet PO Active 10 mg PO twice a day (bid) Gino 12.24.830.1.264673.4.391 Precose as directed Orally Active 25 MG Orally Three times a day Gino 12.24.830.1.702643.4.391 Tramadol HCl 1 tablet Orally Active 50 MG Orally as needed (prn) Gino 12.24.830.1.759373.4.391 Co Q 10 1 capsule with a meal Orally Active 200 MG Orally Once a day Gino 12.24.830.1.615524.4. Accu-Chek Softclix Lancets USE INSTRUCTED THREE TIMES DAILY NA Active - Gino 840.1.032351.4.391 Aspirin 1 tablet Orally Active 325 MG Orally Once a day Gino 840.1.718553.4.391 Carvedilol 1 tablet Orally Active 12.5 MG Orally twice a day (bid) Gino 12.24.830.1.492451.4.391 Vitamin B-12 1 tablet Orally Active 500 MCG Orally Once a day Gino 12.24.830.1.822877.4.391 Januvia 2 tablets NA Active 100 MG twice a day (bid) Gino 12.24.830.1.371128.4.391 Isosorbide Dinitrate 1 tablet Orally Active 30 MG Orally Twice a day Gino 12.24.830.1.650582.4 Accu-Chek Polina Plus USE DIRECTED THREE TIMES A DAY. NA Active Gino 840.1.871350.4 Cyanocobalamin INJECT ONE (1) ML(S) INTRAMUSCULARLY EVERY 1 MONTH. NA Active 1000 MCG/ML Gino 12.24.830.1.756983.4.391 Furosemide 1 tablet Orally Active 20 mg Orally Once a day Gino 12.24.830.1.209215.4. Accu-Chek Polina Plus USE DIRECTED THREE TIMES A DAY. NA Active . as directed Gino 840.1.516454.4.391 Metoprolol Tartrate 1 tablet with food Orally Active 25 MG Orally Twice a day Gino 12.24.830.1.559981.4.391 Tramadol HCl 1 tablet as needed Orally Active 50 MG Orally every 6 hrs Gino 840.1.892116.4.391,[facility] Clopidogrel Bisulfate 1 tablet Orally Active 75 mg Orally Once a day Gino 840.1.562247.4.391,[facility] Lantus SoloStar inject 15 units Subcutaneous Active 100 UNIT/ML Subcutaneous once every night Gino 840.1.959574.4.391 Aspirin 1 tablet Orally Active 325 MG Orally Once a day Gino 840.1.333383.4.391 [place] 3 1 capsule Orally Active 1000 MG Orally Once a day Gino 840.1.925343.4.391,[facility] Acarbose 1 tablet Orally Active 25 MG Orally three times a day (tid) Gino 12.24.830.1.307370.4.391 Aspirin 1 tablet Orally Active 81 MG Orally Once a day Gino 12.24.830.1.224334.4.391 Accu-Chek Polina Plus USE DIRECTED THREE TIMES A DAY. NA Active - Gino 840.1.617443.4.391 GlyBURIDE not defined NA Active 5 MG twice a day (bid) Gino 12.24.830.1.591833.4.391 Metoprolol Tartrate 1 tablet with food Orally Active 25 MG Orally Twice a day [facility] Levemir FlexTouch not defined Subcutaneous Active 100 UNIT/ML Subcutaneous [facility] Zantac 1 tablet at bedtime Orally Active 150 MG Orally Once a day [facility] Lantus SoloStar not defined Subcutaneous Active 100 UNIT/ML Subcutaneous [facility] GlyBURIDE 1 tablet with breakfast or the first main meal of the day Orally Active 5 MG Orally Once a day [facility] CoQ-10 1 capsule with a meal Orally Active 100 mg Orally Once a day [facility] Doxycycline not defined NA Active [facility] Nitroglycerin 1 patch to skin remove after 12 hours Transdermal Active 0.1 MG/HR Transdermal Once a day [facility] Hydrocodone-Acetaminophen not defined NA Active [facility] Aspir-81 1 tablet Orally Active 81 MG Orally Once a day [facility] Precose as directed Orally Active 25 MG Orally Three times a day Gino [facility],2.16840.1.770269.4.391.68 Simvastatin TAKE ONE (1) TABLET(S) BY MOUTH EVERY NIGHT. NA Active 40 MG Gino 2.16840.1.783720.4.39168 Lipitor TAKE ONE (1) TABLET(S) BY MOUTH AT BEDTIME. NA Active 40 MG Gino [facility],2.0.1.988113.4.391 Hemocyte Plus 1 capsule Orally Active 106-1 MG Orally Once a day Gino 2.840.1.766140.4.391.68 Allergies, Adverse Reactions, Alerts Substance Category Reaction Severity Reaction type Status Date Reported Comments Source N.K.D.A. Adverse Reaction Info Not Available Adverse Reaction Active 12/02/2018 2.16840.1.536167.4.391..57698 Immunizations Immunization Date Given Site Status Last Updated Comments Source Influenza Vaccine 09/21/2017 completed 2.16840.1.569782.4.391..70897 Results Order Name Results Value Reference Range Date Interpretation Comments Source Vital Signs Vital Sign Value Date Comments Source Weight 152.4 12/02/2018 2.16.840.1.241968.4.391.11.83755 Height 65.4 12/02/2018 2.16.840.1.100953.4.391.11.02948 Temperature Oral (F) 96.4 F 12/02/2018 2.16.840.1.907000.4.391.11.05111 Heart Rate 79 12/02/2018 2.16.840.1.830674.4.391.11.97870 Diastolic (mm Hg) 64 12/02/2018 2.16.840.1.088065.4.391.11.97853 Systolic (mm Hg) 136 12/02/2018 2.16.840.1.117917.4.391.11.89713 Weight 152.2 10/03/2018 2.16.840.1.568420.4.391.11.13197 Height 65.4 10/03/2018 2.16.840.1.896004.4.391.11.18340 Temperature Oral (F) 96.6 F 10/03/2018 2.16.840.1.232352.4.391.11.77323 Heart Rate 94 10/03/2018 2.16.840.1.118314.4.391.11.07586 Diastolic (mm Hg) 71 10/03/2018 2.16.840.1.009647.4.391.11.39604 Systolic (mm Hg) 142 10/03/2018 2.16.840.1.854890.4.391.11.19430 Weight 147.1 08/31/2018 2.16.840.1.778234.4.391.11.96192 Height 65.4 08/31/2018 2.16.840.1.752619.4.391.11.46922 Temperature Oral (F) 96.1 F 08/31/2018 2.16.840.1.627104.4.391.11.48948 Heart Rate 81 08/31/2018 2.16.840.1.923514.4.391.11.73533 Diastolic (mm Hg) 71 08/31/2018 2.16.840.1.864832.4.391.11.43570 Systolic (mm Hg) 149 08/31/2018 2.16.840.1.461444.4.391.11.94237 Diastolic (mm Hg) 57 07/12/2018 2.16.840.1.142178.4.391.11.69259 Systolic (mm Hg) 124 07/12/2018 2.16.840.1.351753.4.391.11.49143 Height 65.4 07/12/2018 2.16.840.1.698599.4.391.11.51583 Temperature Oral (F) 96.4 F 07/12/2018 2.16.840.1.673612.4.391.11.86452 Heart Rate 86 07/12/2018 2.16.840.1.728758.4.391.11.75198 Weight 140.2 05/19/2018 2.16.840.1.009690.4.391.11.80637 Height 65.4 05/19/2018 2.16.840.1.161159.4.391.11.00607 Temperature Oral (F) 99.0 F 05/19/2018 2.16.840.1.988635.4.391.11.59680 Heart Rate 98 05/19/2018 2.16.840.1.943419.4.391.11.85086 Diastolic (mm Hg) 49 05/19/2018 2.16.840.1.032880.4.391.11.74736 Systolic (mm Hg) 124 05/19/2018 2.16.840.1.088555.4.391.11.50826 Heart Rate 97 04/25/2018 2.16.840.1.790704.4.391.11.81416 Diastolic (mm Hg) 65 04/25/2018 2.16.840.1.496566.4.391.11.47691 Systolic (mm Hg) 131 04/25/2018 2.16.840.1.985877.4.391.11.86199 Temperature Oral (F) 98.1 F 04/25/2018 2.16.840.1.738884.4.391.11.85297 Weight 147.9 12/06/2017 2.16.840.1.765090.4.391.11.88154 Height 65.4 12/06/2017 2.16.840.1.147513.4.391.11.72872 Temperature Oral (F) 98.0 F 12/06/2017 2.16.840.1.697409.4.391.11.46489 Heart Rate 101 12/06/2017 2.16.840.1.025137.4.391.11.80461 Diastolic (mm Hg) 63 12/06/2017 2.16.840.1.908799.4.391.11.52821 Systolic (mm Hg) 115 12/06/2017 2.16.840.1.175328.4.391.11.25212 Weight 159.4 2017 2.16.840.1.231346.4.391.11.16013 Height 65.4 2017 2.16.840.1.624143.4.391.11.49355 Temperature Oral (F) 98.2 F 2017 2.16.840.1.198528.4.391.11.36127 Heart Rate 97 2017 2.16.840.1.538275.4.391.11.09305 Diastolic (mm Hg) 62 2017 2.16.840.1.961954.4.391.11.49746 Systolic (mm Hg) 130 2017 2.16.840.1.760897.4.391.11.74281 Weight 159.6 09/21/2017 2.16.840.1.814250.4.391.11.61306 Height 65.4 09/21/2017 2.16.840.1.859999.4.391.11.22014 Temperature Oral (F) 97.4 F 09/21/2017 2.16.840.1.812209.4.391.11.97922 Heart Rate 94 09/21/2017 2.16.840.1.540647.4.391.11.79884 Diastolic (mm Hg) 64 09/21/2017 2.16.840.1.917537.4.391.11.64700 Systolic (mm Hg) 123 09/21/2017 2.16.840.1.266989.4.391.11.57410 Weight 160.0 06/21/2017 2.16.840.1.730653.4.391.11.22269 Height 65.4 06/21/2017 2.16.840.1.665214.4.391.11.31756 Temperature Oral (F) 98.0 F 06/21/2017 2.16.840.1.655850.4.391.11.41414 Heart Rate 81 06/21/2017 2.16.840.1.049685.4.391.11.80296 Diastolic (mm Hg) 69 06/21/2017 2.16.840.1.971914.4.391.11.38565 Systolic (mm Hg) 133 06/21/2017 2.16.840.1.469700.4.391.11.49969 Weight 159 06/07/2017 2.16.840.1.294652.4.391.11.54530 Height 65.4 06/07/2017 2.16.840.1.394008.4.391.11.79309 Temperature Oral (F) 98.2 F 06/07/2017 2.16.840.1.370914.4.391.11.78369 Heart Rate 79 06/07/2017 2.16.840.1.934998.4.391.11.76543 Diastolic (mm Hg) 49 06/07/2017 2.16.840.1.424238.4.391.11.04512 Systolic (mm Hg) 120 06/07/2017 2.16.840.1.100631.4.391.11.26909 Weight 158.1 04/20/2017 2.16.840.1.147264.4.391.11.27470 Height 65.4 04/20/2017 2.16.840.1.566442.4.391.11.00250 Temperature Oral (F) 98.1 F 04/20/2017 2.16.840.1.326038.4.391.11.66458 Heart Rate 75 04/20/2017 2.16.840.1.120605.4.391.11.11731 Diastolic (mm Hg) 73 04/20/2017 2.16.840.1.386817.4.391.11.42316 Systolic (mm Hg) 130 04/20/2017 2.16.840.1.518747.4.391.11.69756 Weight 159.2 02/04/2017 2.16.840.1.765312.4.391.11.00344 Height 65.4 02/04/2017 2.16.840.1.843081.4.391.11.40422 Temperature Oral (F) 98.3 F 02/04/2017 2.16.840.1.440427.4.391.11.76720 Diastolic (mm Hg) 55 02/04/2017 2.16.840.1.479053.4.391.11.78532 Systolic (mm Hg) 108 02/04/2017 2.16.840.1.991494.4.391.11.31722 Weight 159.0 11/04/2016 2.16.840.1.045936.4.391.11.25790 Height 65.4 11/04/2016 2.16.840.1.364127.4.391.11.06207 Temperature Oral (F) 97.8 F 11/04/2016 2.16.840.1.031157.4.391.11.72063 Heart Rate 81 11/04/2016 2.16.840.1.701531.4.391.11.28986 Diastolic (mm Hg) 73 11/04/2016 2.16.840.1.257546.4.391.11.37513 Systolic (mm Hg) 125 11/04/2016 2.16.840.1.929269.4.391.11.97125 Encounters Location Location Details Encounter Type Encounter Number Reason For Visit Attending Provider ADM Date DC Date Status Source [facility] Unknown [id number] 12/09/2016 12/09/2016 2.16.840.1.797993.4.391.11.70083 Procedures Procedure Code Date Perfomer Comments Source
--- OUTSIDE RECORDS SUMMARY | 2018-12-15 07:21 | XMS REPORT ---
Author Author Chin Christian [facility] eClinicalWorks Address Unknown Phone Unavailable Care Team Providers Care Leno Sewer Name Role Phone Chin Christian CP Unavailable Allergies, Adverse Reactions, Alerts Substance Reaction Event Type N.K.D.A. Info Not Available Non Drug Allergy Problems Problem Type Condition Code Onset Dates Condition Status Assessment S/P AVR (aortic valve replacement) Z95.2 Active Assessment Nonrheumatic aortic valve stenosis I35.0 Active Assessment 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 Problem 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 by examination, associated with type 2 diabetes mellitus E11.319 Active Assessment Vertebral artery stenosis with cerebral infarction I63.219 Active Problem 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 Active Assessment Hx of heart artery stent Z95.5 Active Problem Coronary artery disease involving [place] coronary artery, angina presence unspecified, unspecified whether [place] or transplanted heart I25.10 Active Problem Hx of heart artery stent Z95.5 Active Problem Essential (primary) hypertension I10 Active Problem Nonrheumatic aortic valve stenosis I35.0 Active Problem S/P AVR (aortic valve replacement) Z95.2 Active Assessment Diverticulosis of large intestine without hemorrhage K57.30 Active Assessment Aortic stenosis I35.0 Active Problem Ulcer L98.499 Active Assessment Mixed hyperlipidemia E78.2 Active Problem Aortic stenosis I35.0 Active Problem Mixed hyperlipidemia E78.2 Active Problem 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 Problem Vertebral artery stenosis with cerebral infarction I63.219 Active Assessment 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 Active Assessment Coronary artery disease involving [place] coronary artery, angina presence unspecified, unspecified whether [place] or transplanted heart I25.10 Active Assessment Left bundle branch block I44.7 Active Assessment 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 by examination, associated with type 2 diabetes mellitus E11.319 Active Problem Diverticulosis of large intestine without hemorrhage K57.30 Active Problem Left bundle branch block I44.7 Active Assessment Essential (primary) hypertension I10 Active Assessment Open wound T14.8 Active Medications Medication Code System Code Instructions Start Date End Date Status Dosage Aspirin [facility] [address]-77 325 MG Orally Once a day Active 1 tablet GlyBURIDE [facility] [address]-48 10 mg PO twice a day (bid) Active 1 tablet Thiamine HCl [facility] 0 500 MG Orally Active not defined Accu-Chek Softclix Lancets [facility] 85841814215 - Active USE INSTRUCTED THREE TIMES DAILY Cholecalciferol [facility] [address]-41 1000 UNIT Orally Once a day Active 1 capsule Precose [facility] 09014592478 25 MG Orally tid ac Active as directed GlyBURIDE [facility] 00365655398 5 MG Active TAKE TWO (2) TABLET(S) BY MOUTH TWICE A DAY. [place] [facility] [address] 1000 MG Orally Once a day Active 1 capsule Clopidogrel Bisulfate [facility] [address]-39 75 MG Orally Once a day Active 1 tablet Co Q 10 [facility] [address] 200 MG Orally Once a day Active 1 capsule with a meal Simvastatin [facility] 97202986286 40 MG Active TAKE ONE (1) TABLET(S) BY MOUTH EVERY NIGHT. Tramadol HCl [facility] [address]-04 50 MG Orally as needed (prn) Active 1 tablet Metoprolol Tartrate [facility] [address]-06 25 MG Orally Twice a day Active 1 tablet with food Lantus SoloStar [facility] [address]-81 100 UNIT/ML Subcutaneous once every night Active inject 10 units Vital Signs Date/Time: April 20, 2017 BMI 25.99 Index Weight 158.1 lbs Height 65.4 in Temperature 98.1 F Cardiac Monitoring Heart Rate 75 /min Blood Pressure Diastolic 73 mm Hg Blood Pressure Systolic 130 mm Hg Results No Known Results Summary Purpose eClinicalWorks Submission
--- OUTSIDE RECORDS SUMMARY | 2018-12-15 07:21 | XMS REPORT ---
Author Author Chin Christian Organization e[employer] Address Unknown Phone Unavailable Care Team Providers Care Force Variation Equipment Tender Name Role Phone Chin Christian CP Unavailable [...] Nonrheumatic aortic valve stenosis I35.0 Active Problem Left bundle branch block I44.7 Active Problem 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 by examination, associated with type 2 diabetes mellitus E11.319 Active Problem Essential (primary) hypertension I10 Active Problem Coronary artery disease involving [place] coronary artery, angina presence unspecified, unspecified whether [place] or transplanted heart I25.10 Active Problem Diverticulosis of large intestine without hemorrhage K57.30 Active Problem 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 Active Medications Medication Code System Code Instructions Start Date End Date Status Dosage Simvastatin [facility] 52803422182 40 MG Inactive TAKE ONE (1) TABLET(S) BY MOUTH EVERY NIGHT. Lipitor [facility] 32231063949 40 MG Orally Once a day Oct 08, 2017 Active 1 tablet Results No Known Results Summary Purpose eClinicalWorks Submission
--- OUTSIDE RECORDS SUMMARY | 2018-12-15 07:21 | XMS REPORT ---
Author Author Chin Christian [facility] eClinicalWorks Address Unknown Phone Unavailable Care Team Providers Care Pomology Teacher Name Role Phone Chin Christian CP Unavailable Allergies, Adverse Reactions, Alerts Substance Reaction Event Type N.K.D.A. Info Not Available Non Drug Allergy Problems Problem Type Condition Code Onset Dates Condition Status Assessment Ulcer L98.499 Active Assessment S/P AVR (aortic valve replacement) [...] Z95.5 Active Problem Coronary artery disease involving [place] coronary artery, angina presence unspecified, unspecified whether [place] or transplanted heart I25.10 Active Problem Hx [...] E11.42 Active Assessment Coronary artery disease involving [place] coronary artery, angina presence unspecified, unspecified whether [place] or transplanted heart I25.10 Active Assessment Left bundle branch block I44.7 Active Assessment 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 by examination, associated with type 2 diabetes mellitus E11.319 Active Problem Diverticulosis of large intestine without hemorrhage K57.30 Active Problem Left bundle branch block I44.7 Active Assessment Essential (primary) hypertension I10 Active Assessment Other injury of unspecified body region T14.8 Active Medications Medication Code System Code Instructions Start Date End Date Status Dosage GlyBURIDE [facility] 32036569583 5 MG Orally Once a day Active TAKE TWO (2) TABLET(S) BY MOUTH TWICE A DAY. Metoprolol Tartrate [facility] 35507514474 25 MG Orally Twice a day Active TAKE ONE (1) TABLET(S) BY MOUTH EVERY TWELVE HOURS. Cholecalciferol [facility] [address]-22 1000 UNIT Orally Once a day Active 1 capsule Simvastatin [facility] 31949207708 40 MG Active TAKE ONE (1) TABLET(S) BY MOUTH EVERY NIGHT. Clopidogrel Bisulfate [facility] [address]-76 75 MG Orally Once a day Active 1 tablet Keflex [facility] [address]-53 500 MG Orally every 12 hrs June 07, 2017 Jun 17, 2017 Active 1 capsule Thiamine HCl [facility] 0 500 MG Orally Active not defined Co Q 10 [facility] [address] 200 MG Orally Once a day Active 1 capsule with a meal Tramadol HCl [facility] [address]-47 50 MG Orally as needed (prn) Active 1 tablet Aspirin [facility] [address]-16 325 MG Orally Once a day Active 1 tablet GlyBURIDE [facility] [address]-73 10 mg PO twice a day (bid) Active 1 tablet [place] 3 [facility] [address] 1000 MG Orally Once a day Active 1 capsule Precose [facility] 97689310645 25 MG Orally tid ac Active as directed Accu-Chek Softclix Lancets [facility] 63914784881 - Active USE INSTRUCTED THREE TIMES DAILY Lantus SoloStar [facility] [address]-82 100 UNIT/ML Subcutaneous once every night Active inject 15 units Vital Signs Date/Time: June 07, 2017 BMI 26.13 Index Weight 159 lbs Height 65.4 in Temperature 98.2 F Cardiac Monitoring Heart Rate 79 /min Blood Pressure Diastolic 49 mm Hg Blood Pressure Systolic 120 mm Hg Results No Known Results Summary Purpose eClinicalWorks Submission
--- OUTSIDE RECORDS SUMMARY | 2018-12-15 07:22 | XMS REPORT ---
Author Author Chin Christian Organization [employer] Address Unknown Phone Unavailable Care Team Providers Care Residential Sales Executive Name Role Phone Chin Christian CP Unavailable [...] I35.0 Active Problem Coronary artery disease involving [place] coronary artery, angina presence unspecified, unspecified whether [place] or transplanted heart I25.10 Active Problem Mixed hyperlipidemia E78.2 Active Medications Medication Code System Code Instructions Start Date End Date Status Dosage GlyBURIDE [facility] 52836956171 5 MG Orally Once a day Active TAKE ONE (1) TABLET(S) BY MOUTH EVERY TWELVE HOURS. Precose [facility] 53636621667 25 MG Orally Three times a day Active as directed Results No Known Results Summary Purpose eClinicalWorks Submission
--- OUTSIDE RECORDS SUMMARY | 2018-12-15 07:22 | XMS REPORT ---
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
--- OUTSIDE RECORDS SUMMARY | 2018-12-15 07:22 | XMS REPORT ---
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
--- OUTSIDE RECORDS SUMMARY | 2018-12-15 07:22 | XMS REPORT ---
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
--- OUTSIDE RECORDS SUMMARY | 2018-12-15 07:22 | XMS REPORT ---
Author Author Chin Christian Organization [employer] Address Unknown Phone Unavailable Care Team Providers Care Radio Board Operator Announcer Name Role Phone Chin Christian CP Unavailable Allergies, Adverse Reactions, Alerts Substance Reaction Event Type N.K.D.A. 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 other type, unspecified laterality E13.3219 Active Problem Nonrheumatic aortic valve stenosis I35.0 Active Assessment Bilateral hearing loss, unspecified hearing loss type H91.93 Active Problem S/P AVR (aortic valve replacement) Z95.2 Active Assessment Drug-induced diarrhea K52.1 Active Problem Ulcer L98.499 Active Problem Type 2 diabetes 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 Active Problem 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 Active Problem Bilateral hearing loss, unspecified hearing loss type H91.93 Active Problem 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 other type, unspecified laterality E13.3219 Active Problem Left bundle branch block I44.7 Active Problem Diverticulosis of large intestine without hemorrhage K57.30 Active Problem Anemia due to chronic blood loss D50.0 Active Problem Essential (primary) hypertension I10 Active Problem Peripheral vascular disease in diabetes mellitus E11.51 Active Problem Gangrene of right foot I96 Active Problem Other osteomyelitis of left foot M86.8X7 Active Problem 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 Active Problem 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 Active Problem Aortic stenosis I35.0 Active Problem 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 by examination, associated with type 2 diabetes mellitus E11.319 Active Problem Coronary artery disease involving [place] coronary artery, angina presence unspecified, unspecified whether [place] or transplanted heart I25.10 Active Problem Vertebral artery stenosis with cerebral infarction I63.219 Active Problem 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 Problem Mixed hyperlipidemia E78.2 Active Problem Hx of heart artery stent Z95.5 Active Medications Medication Code System Code Instructions Start Date End Date Status Dosage Co Q 10 [facility] [address] 200 MG Orally Once a day Active 1 capsule with a meal Lipitor [facility] 81751899539 40 MG Orally Once a day Oct 08, 2017 Active 1 tablet Nitroglycerin [facility] 90493306808 0.2 MG/HR Transdermal Sep 21, 2017 Active as directed Levemir FlexTouch [facility] 86712593564 100 UNIT/ML 15 units Subcutaneous once every night February 15, 2018 Active as directed Simvastatin [facility] 69959387329 40 MG Active TAKE ONE (1) TABLET(S) BY MOUTH EVERY NIGHT. [place] 3 [facility] 80121525239 1000 MG Orally Once a day Active 1 capsule Clopidogrel Bisulfate [facility] 79719636238 75 mg Orally Once a day Active 1 tablet Zantac [facility] 63371795270 150 MG Orally twice a day (bid) Jun 21, 2017 Active 1 tablet at bedtime Levemir [facility] [address]-30 100 UNIT/ML Subcutaneous twice a day (bid) February 17, 2018 Jul 24, 2018 Active 15 units in the morning and 5 units at night Thiamine HCl ND 0 500 MG Orally Active not defined Tramadol HCl [facility] 07074668292 50 MG Orally every 6 hrs Active 1 tablet as needed Aspirin [facility] 63873598242 81 MG Orally Once a day Active 1 tablet Cholecalciferol [facility] [address]-72 1000 UNIT Orally Once a day Active 1 capsule Hemocyte Plus [facility] 08794884563 106-1 MG Orally Once a day May 18, 2018 Active 1 capsule Tramadol HCl [facility] 34564568966 50 MG Orally as needed (prn) Active 1 tablet Accu-Chek [place] Plus ND 0 - Active USE DIRECTED THREE TIMES A DAY. BD Insulin Syringe Ultrafine [facility] 81689605954 31G X 5/16 intramuscularly twice a day (bid) Nov 26, 2017 Active as directed Tylenol/Codeine #3 [facility] 11154196094 300-30 MG Orally every 6 hrs Jul 12, 2018 Active 1 tablet as needed Accu-Chek Softclix Lancets [facility] 39539440724 - Active USE INSTRUCTED THREE TIMES DAILY Precose [facility] 76893622196 25 MG Orally Three times a day Active as directed GlyBURIDE [facility] 02560199797 5 MG Active TAKE ONE (1) TABLET(S) BY MOUTH EVERY TWELVE HOURS. Metoprolol Tartrate [facility] 82908227489 25 MG Orally Twice a day Active TAKE ONE (1) TABLET(S) BY MOUTH EVERY TWELVE HOURS. Vital Signs Date/Time: Jul 12, 2018 Blood Pressure Diastolic 57 mm Hg Blood Pressure Systolic 124 mm Hg Height 65.4 in Temperature 96.4 F Cardiac Monitoring Heart Rate 86 /min Results No Known Results Summary Purpose eClinicalWorks Submission
--- OUTSIDE RECORDS SUMMARY | 2018-12-15 07:22 | XMS REPORT ---
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
--- OUTSIDE RECORDS SUMMARY | 2018-12-15 07:22 | XMS REPORT ---
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 Problem Anticoagulant long-term use Z79.01 Active Problem Osteomyelitis of metatarsal M86.9 Active Problem History of leg amputation Z89.619 Active Problem 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 Active Assessment Osteomyelitis of metatarsal M86.9 Active Assessment History of leg amputation Z89.619 Active Assessment Anticoagulant long-term use Z79.01 Active Assessment 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 Medications Medication Code System Code Instructions Start Date End Date Status Dosage Metoprolol Tartrate [facility] 69473914022 25 MG Orally Twice a day Active 1 tablet with food Cholecalciferol [facility] [address]-92 1000 UNIT Orally Once a day Active 1 capsule Levemir FlexTouch [facility] 57189510404 100 UNIT/ML Subcutaneous Active not defined Zantac [facility] 38592351387 150 MG Orally Once a day Active 1 tablet at bedtime Lantus SoloStar ND 09260067460 100 UNIT/ML Subcutaneous Active not defined Lipitor ND 76950563631 40 MG Orally Once a day Active 1 tablet Clopidogrel Bisulfate [facility] 38608144958 75 MG Orally Once a day Active 1 tablet Precose [facility] 32271475343 25 MG Orally Three times a day Active 1 tablet GlyBURIDE ND 20288768435 5 MG Orally Once a day Active 1 tablet with breakfast or the first main meal of the day CoQ-10 [facility] 05272587490 100 mg Orally Once a day Active 1 capsule with a meal Thiamine HCl NDC 0 500 MG Orally every other day Active not defined Doxycycline [facility] [address]-27 Active not defined Fluconazole [facility] 41089411407 200 MG Orally Once a day Jul 13, 2018 Jul 23, 2018 Active 1 tablet Nitroglycerin [facility] 68756858476 0.1 MG/HR Transdermal Once a day Active 1 patch to skin remove after 12 hours Hydrocodone-Acetaminophen [facility] [address]-08 Active not defined Tramadol HCl [facility] 61123243233 50 MG Orally every 6 hrs Active 1 tablet as needed Aspir-81 [facility] 67446725123 81 MG Orally Once a day Active 1 tablet [place] 3 [facility] 66518543794 1000 MG Orally Once a day Active 1 capsule Results No Known Results Summary Purpose eClinicalWorks Submission
--- OUTSIDE RECORDS SUMMARY | 2018-12-15 07:22 | XMS REPORT ---
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
--- OUTSIDE RECORDS SUMMARY | 2018-12-15 07:22 | XMS REPORT ---
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 Active Problem Peripheral vascular disease in diabetes mellitus E11.51 Active Problem Other osteomyelitis of left foot M86.8X7 Active Problem 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 Active Problem Ulcer L98.499 Active Problem Gangrene of right foot I96 Active Problem Type 2 diabetes 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 Active Problem Left bundle branch block I44.7 Active Problem 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 by examination, associated with type 2 diabetes mellitus E11.319 Active Problem Essential (primary) hypertension I10 Active Problem Diverticulosis of large intestine without hemorrhage K57.30 Active Problem Hx of heart artery stent Z95.5 Active Problem Aortic stenosis I35.0 Active Problem Coronary artery disease involving [place] coronary artery, angina presence unspecified, unspecified whether [place] or transplanted heart I25.10 Active Problem Mixed hyperlipidemia E78.2 Active Problem 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 Active Problem Vertebral artery stenosis with cerebral infarction I63.219 Active Medications Medication Code System Code Instructions Start Date End Date Status Dosage Levemir FlexTouch [facility] 91299868001 100 UNIT/ML 15 units Subcutaneous once every night February 15, 2018 Active as directed Clopidogrel Bisulfate [facility] 26045111108 75 mg Orally Once a day Active 1 tablet Lantus SoloStar [facility] 40056596327 100 UNIT/ML Subcutaneous once every night Inactive inject 15 units Results No Known Results Summary Purpose eClinicalWorks Submission
--- OUTSIDE RECORDS SUMMARY | 2018-12-15 07:22 | XMS REPORT ---
Author Author Chin Christian Organization [employer] Address Unknown Phone Unavailable Care Team Providers Care Process Stripper Name Role Phone Chin Christian CP Unavailable Allergies, Adverse Reactions, Alerts Substance Reaction Event Type N.K.D.A. Info Not Available Non Drug Allergy Problems Problem Type Condition Code Onset Dates Condition Status Assessment Mixed hyperlipidemia E78.2 Active Assessment 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 by examination, associated with type 2 diabetes mellitus E11.319 Active Assessment Otalgia, bilateral H92.03 Active Assessment Other chronic pain G89.29 Active Problem Essential (primary) hypertension I10 Active Problem 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 Active Problem Diverticulosis of large intestine without hemorrhage K57.30 Active Problem Type 2 diabetes 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 Active Problem Left bundle branch block I44.7 Active Problem Gangrene of right foot I96 Active Problem 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 Active Problem Peripheral vascular disease in diabetes mellitus E11.51 Active Problem TIA (transient ischemic attack) G45.9 Active Problem Gastroesophageal reflux disease, esophagitis presence not specified K21.9 Active Problem 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 Active Problem Coronary artery disease involving [place] coronary artery, angina presence unspecified, unspecified whether [place] or transplanted heart I25.10 Active Problem Other chronic pain G89.29 Active Problem 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 by examination, associated with type 2 diabetes mellitus E11.319 Active Problem 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 other type, unspecified laterality E13.3219 Active Problem Other osteomyelitis of left foot M86.8X7 Active Problem Bilateral hearing loss, unspecified hearing loss type H91.93 Active Problem Anemia due to chronic blood loss D50.0 Active Problem Mixed hyperlipidemia E78.2 Active Problem Vertebral artery stenosis with cerebral infarction I63.219 Active Problem Aortic stenosis I35.0 Active Problem Hx of heart artery stent Z95.5 Active Problem S/P AVR (aortic valve replacement) Z95.2 Active Problem Ulcer L98.499 Active Problem 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 Precose [facility] 11129910612 25 MG Orally Three times a day Active as directed Simvastatin ND 09198217102 40 MG Active TAKE ONE (1) TABLET(S) BY MOUTH EVERY NIGHT. Hemocyte Plus [facility] 54704147265 106-1 MG Orally three times a week as needed (prn) May 18, 2018 Active 1 capsule Aspirin [facility] 42883444327 81 MG Orally Once a day Active 1 tablet Zantac [facility] 20091408775 300 MG Orally Once a day Aug 31, 2018 Active 1 tablet Tylenol/Codeine #[address] [facility] 58535664095 300-30 MG Orally as needed (prn) Jul 12, 2018 Active 1 tablet as needed Cholecalciferol [facility] [address]-74 1000 UNIT Orally Once a day Active 1 capsule [place] [address] [facility] 46766347716 1000 MG Orally Once a day Active 1 capsule Co Q 10 [facility] [address] 200 MG Orally Once a day Active 1 capsule with a meal Clopidogrel Bisulfate [facility] 55671618032 75 mg Orally Once a day Active 1 tablet Tramadol HCl ND 73640505759 50 MG Orally every 6 hrs Active 1 tablet as needed GlyBURIDE ND 37212019348 5 MG Active TAKE ONE (1) TABLET(S) BY MOUTH EVERY TWELVE HOURS. Thiamine HCl NDC 0 500 MG Orally Active not defined Vital Signs Date/Time: Oct 03, 2018 BMI 25.02 Index Weight 152.2 lbs Height 65.4 in Temperature 96.6 F Cardiac Monitoring Heart Rate 94 /min Blood Pressure Diastolic 71 mm Hg Blood Pressure Systolic 142 mm Hg Results No Known Results Summary Purpose [employer]ClinicalWorks Submission
--- OUTSIDE RECORDS SUMMARY | 2018-12-15 07:22 | XMS REPORT ---
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 Active Problem Peripheral vascular disease in diabetes mellitus E11.51 Active Problem Gangrene of right foot I96 Active Problem Gastroesophageal reflux disease, esophagitis presence not specified K21.9 Active Problem Bilateral hearing loss, unspecified hearing loss type H91.93 Active Problem Coronary artery disease involving [place] coronary artery, angina presence unspecified, unspecified whether [place] or transplanted heart I25.10 Active Problem 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 by examination, associated with type 2 diabetes mellitus E11.319 Active Problem TIA (transient ischemic attack) G45.9 Active Problem Left bundle branch block I44.7 Active Problem Other osteomyelitis of left foot M86.8X7 Active Problem 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 Active Problem Anemia due to chronic blood loss D50.0 Active Problem 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 other type, unspecified laterality E13.3219 Active Problem Hx of heart artery stent Z95.5 Active Problem Mixed hyperlipidemia E78.2 Active Problem 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 Results No Known Results Summary Purpose [employer]Clinical[employer] Submission
--- OUTSIDE RECORDS SUMMARY | 2018-12-15 07:22 | XMS REPORT ---
Author Author Chin Christian Organization [employer] Address Unknown Phone Unavailable Care Team Providers Care Road Inspector Name Role Phone Chin Christian CP Unavailable [...] I35.0 Active Problem Coronary artery disease involving [place] coronary artery, angina presence unspecified, unspecified whether [place] or transplanted heart I25.10 Active Problem Mixed hyperlipidemia E78.2 Active Medications Medication Code System Code Instructions Start Date End Date Status Dosage Hemocyte Plus NDC 25258592640 106-1 MG Orally Once a day May 18, 2018 Active 1 capsule Results No Known Results Summary Purpose [employer]Clinical[employer] Submission
--- OUTSIDE RECORDS SUMMARY | 2018-12-15 07:22 | XMS REPORT ---
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 Active Problem 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 Active Problem Bilateral hearing loss, unspecified hearing loss type H91.93 Active Problem Left bundle branch block I44.7 Active Problem 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 other type, unspecified laterality E13.3219 Active Problem Diverticulosis of large intestine without hemorrhage K57.30 Active Problem Essential (primary) hypertension I10 Active Problem Anemia due to chronic blood loss D50.0 Active Problem Peripheral vascular disease in diabetes [...] E11.319 Active Problem Coronary artery disease involving [place] coronary artery, angina presence unspecified, unspecified whether [place] or transplanted heart I25.10 Active Problem Vertebral artery stenosis with cerebral infarction I63.219 Active Problem 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
--- OUTSIDE RECORDS SUMMARY | 2018-12-15 07:22 | XMS REPORT ---
Author Author Shaun Lewis Organization [employer] Address Unknown Phone Unavailable Care Team Providers Care Training Executive Name Role Phone Shaun Lewis CP Unavailable [...]
--- OUTSIDE RECORDS SUMMARY | 2018-12-15 07:22 | XMS REPORT ---
Author Author Chin Christian [facility] [employer] Address Unknown Phone Unavailable Care Team Providers Care Gun Tester Name Role Phone Chin Christian CP Unavailable [...] of right lower extremity Z89.511 Active Assessment Other osteomyelitis of left foot M86.8X7 Active Problem Peripheral vascular disease in diabetes mellitus E11.51 Active Assessment Essential (primary) hypertension I10 Active Assessment Coronary artery disease involving [place] coronary artery, angina presence unspecified, unspecified whether [place] or transplanted heart I25.10 Active Problem Other osteomyelitis of left foot [...] I35.0 Active Problem Coronary artery disease involving [place] coronary artery, angina presence unspecified, unspecified whether [place] or transplanted heart I25.10 Active Problem Mixed hyperlipidemia E78.2 Active Assessment 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 Active Problem 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 Active Problem Vertebral artery stenosis with cerebral infarction I63.219 Active Medications Medication Code System Code Instructions Start Date End Date Status Dosage Precose [facility] 90614163136 25 MG Orally Three times a day Active as directed Hemocyte Plus ND 39603825705 106-1 MG Orally Once a day May 18, 2018 Active 1 capsule Lantus SoloStar [facility] 30245609343 100 UNIT/ML Subcutaneous once every night Active inject 15 units Aspirin [facility] 71062298632 81 MG Orally Once a day Active 1 tablet [place] 3 [facility] 02653046978 1000 MG Orally Once a day Active 1 capsule GlyBURIDE [facility] 41637410232 5 MG Orally Once a day Active TAKE ONE (1) TABLET(S) BY MOUTH EVERY TWELVE HOURS. Nitroglycerin [facility] 32570668209 0.2 MG/HR Transdermal Sep 21, 2017 Active as directed Metoprolol Tartrate [facility] 38204426128 25 MG Orally Twice a day Active TAKE ONE (1) TABLET(S) BY MOUTH EVERY TWELVE HOURS. Levemir [facility] 03329102305 100 UNIT/ML Subcutaneous twice a day (bid) February 17, 2018 Active 15 units in the morning and 15 units at night Thiamine HCl ND 0 500 MG Orally Active not defined Accu-Chek Polina Plus NDC 0 - Active USE DIRECTED THREE TIMES A DAY. Tramadol HCl [facility] 38137321104 50 MG Orally every 6 hrs Active 1 tablet as needed Zantac [facility] 98701887071 150 MG Orally twice a day (bid) Jun 21, 2017 Active 1 tablet at bedtime Co Q 10 [facility] [address]67 200 MG Orally Once a day Active 1 capsule with a meal Accu-Chek Softclix Lancets [facility] 87098306639 - Active USE INSTRUCTED THREE TIMES DAILY Tramadol HCl [facility] 38453637309 50 MG Orally as needed (prn) Active 1 tablet Lipitor [facility] 30481569148 40 MG Orally Once a day Oct 08, 2017 Active 1 tablet Levemir FlexTouch [facility] 74728355225 100 UNIT/ML 10 units Subcutaneous once every night February 15, 2018 Active as directed Cholecalciferol [facility] [address]-07 1000 UNIT Orally Once a day Active 1 capsule Clopidogrel Bisulfate [facility] 63583513763 75 MG Orally Once a day Active 1 tablet BD Insulin Syringe Ultrafine [facility] 90036437507 31G X 5/16 intramuscularly twice a day (bid) Nov 26, 2017 Active as directed Vital Signs Date/Time: May 19, 2018 BMI 23.04 Index Weight 140.2 lbs Height 65.4 in Temperature 99.0 F Cardiac Monitoring Heart Rate 98 /min Blood Pressure Diastolic 49 mm Hg Blood Pressure Systolic 124 mm Hg Results Name Result Date Reference Range Unit Abnormality Flag SED RATE BY MODIFIED WESTERGREN ----SED RATE BY MODIFIED WESTERGREN 38 [id number] < OR=20 mm/h H COMPREHENSIVE METABOLIC PANEL ----ALBUMIN/GLOBULIN RATIO 1.1 [id number] 1.0-2.5 (calc) N ----GLOBULIN 2.9 84001128 1.9-3.7 g/dL (calc) N ----ALKALINE PHOSPHATASE 80 20180519 40-115 U/L N ----BILIRUBIN, TOTAL 0.2 20180519 0.2-1.2 mg/dL N ----CHLORIDE 98 20180519 98-110 mmol/L N ----ALT 10 20180519 9-46 U/L N ----POTASSIUM 4.0 20180519 3.5-5.3 mmol/L N ----AST 19 20180519 10-35 U/L N ----SODIUM 133 20180519 135-146 mmol/L L ----BUN/CREATININE RATIO NOT APPLICABLE 20180519 6-22 (calc) ----eGFR 88 20180519 > OR=60 mL/min/1.73m2 N ----CALCIUM 9.1 20180519 8.6-10.3 mg/dL N ----CARBON DIOXIDE 27 20180519 20-31 mmol/L N ----ALBUMIN 3.3 20180519 3.6-5.1 g/dL L ----PROTEIN, TOTAL 6.2 72778744 6.1-8.1 g/dL N ----GLUCOSE 307 20180519 65-99 mg/dL H ----UREA NITROGEN (BUN) 21 20180519 7-25 mg/dL N ----CREATININE 0.97 20180519 0.70-1.18 mg/dL N ----eGFR NON-AFR. [place] 76 20180519 > OR=60 mL/min/1.73m2 N CBC (INCLUDES DIFF/PLT) ----MCHC 33.1 73337923 32.0-36.0 g/dL N ----MCH 28.2 69698541 27.0-33.0 pg N ----PLATELET COUNT 599 21945014 140-400 Thousand/uL H ----RDW 13.8 96499840 11.0-15.0 % N ----BASOPHILS 1.1 52897714 % N ----ABSOLUTE NEUTROPHILS 8111 56309988 6018-4215 cells/uL H ----ABSOLUTE LYMPHOCYTES 1198 72498733 850-3900 cells/uL N ----MPV 8.2 55385656 7.5-12.5 fL N ----ABSOLUTE BASOPHILS 118 30674477 0-200 cells/uL N ----HEMATOCRIT 29.0 23915654 38.5-50.0 % L ----NEUTROPHILS 75.8 80652799 % N ----MCV 85.3 32485050 80.0-100.0 fL N ----RED BLOOD CELL COUNT 3.40 28483085 4.20-5.80 Million/uL L ----ABSOLUTE MONOCYTES 1145 95360495 200-950 cells/uL H ----ABSOLUTE EOSINOPHILS 128 13790924 15-500 cells/uL N ----HEMOGLOBIN 9.6 57597192 13.2-17.1 g/dL L ----EOSINOPHILS 1.2 72789085 % N ----WHITE BLOOD CELL COUNT 10.7 45614508 3.8-10.8 Thousand/uL N ----LYMPHOCYTES 11.2 77292260 % N ----MONOCYTES 10.7 54254202 % N Summary Purpose eClinicalWorks Submission
--- OUTSIDE RECORDS SUMMARY | 2018-12-15 07:22 | XMS REPORT ---
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
--- OUTSIDE RECORDS SUMMARY | 2018-12-15 07:22 | XMS REPORT ---
Author Author Chin Christian Organization [employer] Address Unknown Phone Unavailable Care Team Providers Care Crepe Sole Wire Brusher Name Role Phone Chin Christian CP Unavailable [...] I35.0 Active Problem Coronary artery disease involving [place] coronary artery, angina presence unspecified, unspecified whether [place] or transplanted heart I25.10 Active Problem Mixed hyperlipidemia E78.2 Active Medications Medication Code System Code Instructions Start Date End Date Status Dosage Levemir [facility] 49575182267 100 UNIT/ML Subcutaneous twice a day (bid) February 17, 2018 Active 15 units in the morning and 15 units at night Results No Known Results Summary Purpose eClinicalWorks Submission
--- OUTSIDE RECORDS SUMMARY | 2018-12-15 07:22 | XMS REPORT ---
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
--- OUTSIDE RECORDS SUMMARY | 2018-12-15 07:22 | XMS REPORT ---
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 Problem Peripheral vascular disease in diabetes mellitus E11.51 Active Assessment Peripheral vascular disease in diabetes mellitus E11.51 Active Problem Gangrene of right foot I96 Active Assessment 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 Active Assessment Coronary artery disease involving [place] coronary artery, angina presence unspecified, unspecified whether [place] or transplanted heart I25.10 Active Problem Status [...] Left bundle branch block I44.7 Active Assessment 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 Active Problem Essential (primary) hypertension I10 Active Problem 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 Active Problem Hx of heart artery stent Z95.5 Active Problem 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 by examination, associated with type 2 diabetes mellitus E11.319 Active Problem Aortic stenosis I35.0 Active Problem Coronary artery disease involving [place] coronary artery, angina presence unspecified, unspecified whether [place] or transplanted heart I25.10 Active Problem Mixed hyperlipidemia E78.2 Active Medications Medication Code System Code Instructions Start Date End Date Status Dosage Precose [facility] 00928220749 25 MG Orally Three times a day Active as directed Accu-Chek Softclix Lancets [facility] 95027433651 - Active USE INSTRUCTED THREE TIMES DAILY [place] 3 [facility] 14529100921 1000 MG Orally Once a day Active 1 capsule Aspirin [facility] 57883644537 81 MG Orally Once a day Active 1 tablet Levemir [facility] 49000244249 100 UNIT/ML Subcutaneous twice a day (bid) February 17, 2018 Active 15 units in the morning and 15 units at night Zantac [facility] 95789891325 150 MG Orally twice a day (bid) Jun 21, 2017 Active 1 tablet at bedtime Metoprolol Tartrate [facility] 00593394616 25 MG Orally Twice a day Active TAKE ONE (1) TABLET(S) BY MOUTH EVERY TWELVE HOURS. GlyBURIDE [facility] 92311878213 5 MG Orally Once a day Active TAKE ONE (1) TABLET(S) BY MOUTH EVERY TWELVE HOURS. Tramadol HCl [facility] 03233915255 50 MG Orally as needed (prn) Active 1 tablet Accu-Chek Polina Plus ND 0 - Active USE DIRECTED THREE TIMES A DAY. Levemir FlexTouch [facility] 10564642719 100 UNIT/ML 10 units Subcutaneous once every night February 15, 2018 Active as directed Nitroglycerin [facility] 57056605444 0.2 MG/HR Transdermal Sep 21, 2017 Active as directed Lipitor [facility] 45099389897 40 MG Orally Once a day Oct 08, 2017 Active 1 tablet Lantus SoloStar [facility] 87233618296 100 UNIT/ML Subcutaneous once every night Active inject 15 units Tramadol HCl [facility] 98616681588 50 MG Orally every 6 hrs Active 1 tablet as needed Co Q 10 [facility] [address] 200 MG Orally Once a day Active 1 capsule with a meal BD Insulin Syringe Ultrafine [facility] 07977928080 31G X 5/16 intramuscularly twice a day (bid) Nov 26, 2017 Active as directed Clopidogrel Bisulfate [facility] 08016251026 75 MG Orally Once a day Active 1 tablet Cholecalciferol [facility] [address]-97 1000 UNIT Orally Once a day Active 1 capsule Thiamine HCl ND 0 500 MG Orally Active not defined Vital Signs Date/Time: April 25, 2018 Cardiac Monitoring Heart Rate 97 /min Blood Pressure Diastolic 65 mm Hg Blood Pressure Systolic 131 mm Hg Temperature 98.1 F Results No Known Results Summary Purpose eClinicalWorks Submission
--- OUTSIDE RECORDS SUMMARY | 2018-12-15 07:22 | XMS REPORT ---
Author Author Chin Christian Organization [employer] Address Unknown Phone Unavailable Care Team Providers Care Peeled Potato Inspector Name Role Phone Chin Christian CP [...] I35.0 Active Problem Coronary artery disease involving [place] coronary artery, angina presence unspecified, unspecified whether [place] or transplanted heart I25.10 Active Problem Mixed hyperlipidemia E78.2 Active Medications Medication Code System Code Instructions Start Date End Date Status Dosage Levemir FlexTouch [facility] 48946296834 100 UNIT/ML 10 units Subcutaneous once every night February 15, 2018 Active as directed Results No Known Results Summary Purpose eClinicalWorks Submission
--- OUTSIDE RECORDS SUMMARY | 2018-12-15 07:23 | XMS REPORT ---
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, associated with type 2 diabetes mellitus E11.319 Active Problem Diverticulosis of large intestine without hemorrhage K57.30 Active Problem Vertebral artery stenosis with cerebral infarction I63.219 Active Problem Aortic stenosis I35.0 Active Problem 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 Yes I do take aspirin/ or a blood thinner Nov 04, 2016 Tobacco Use: . Are you a: never smoker Nov 04, 2016 Use of recreational / street drugs? . Answer: No Nov 04, 2016 Marital Status: . Nov 04, 2016 Caffeine intake? . Status: Yes, What type: Coffee Nov 04, 2016 Do you exercise? . Answer: No Nov 04, 2016 Do you drink alcohol? . Status: Yes, Type: Wine, How Often? Rarely, Quantity: 1 Nov 04, 2016 Travel outside [place]: . 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
--- OUTSIDE RECORDS SUMMARY | 2018-12-15 07:23 | XMS REPORT ---
Author [facility] Address Unknown Phone Unavailable Care Team Providers Care Gut Carrier Name Role Phone Star Glaser Unavailable Unavailable Problems This patient has no known problems. Allergies, Adverse Reactions, Alerts This patient has no known allergies or adverse reactions. Medications This patient has no known medications. Results Test Description Test Time Test Comments Text Results Atomic Results Result Comments Comprehensive metabolic panel 2018-05-23 17:34:00 Serum or plasma sodium measurement (moles/volume) (test hvhl=8833-9) 136 mmol/L 136-145 Potassium [Moles/volume] in Serum or Plasma (test ktql=1211-0) 3.6 mmol/L 3.5-5.1 Chloride [Moles/volume] in Serum or Plasma (test fbuh=6425-0) 101 mmol/L 98-107 Carbon dioxide, total [Moles/volume] in Serum or Plasma (test oxmv=9874-4) 28 mmol/L 21-32 Glucose [Mass/volume] in Serum or Plasma (test nkql=9528-1) 243 mg/dL 74-106 Urea nitrogen [Mass/volume] in Serum or Plasma (test bigy=2880-9) 24 mg/dL 7-18 Creatinine [Mass/volume] in Serum or Plasma (test itim=2928-6) 0.90 mg/dL 0.55-1.3 Estimated glomerular filtration rate (GFR) determination (test dxdm=21154-2) 82 mL =/>90 FOR CHRONIC KIDNEY DISEASE: GFR STAGE DESCRIPTION=/>90 STAGE 1 NORMAL--OR-- MINIMAL KIDNEY DAMAGE WITH NORMAL GFR 60-89 STAGE 2 MILD DECREASE IN GFR 30-59 STAGE 3 MODERATE DECREASE IN GFR 15-29 STAGE 4 SEVERE DECREASE IN GFR <15 STAGE 5 KIDNEY FAILURE The Glomerular Filtration Rate (GFR) has been calculated using the IDMS-Traceable MDRD Study Equation. Aspartate aminotransferase [Enzymatic activity/volume] in Serum or Plasma by With P-5 (test bygg=77248-9) 15 U/L 15-37 Alanine aminotransferase [Enzymatic activity/volume] in Serum or Plasma by With P-5'- (test tavh=4089-4) 13 U/L 12-78 Alkaline phosphatase [Enzymatic activity/volume] in Serum or Plasma (test bewj=3359-7) 98 U/L 45-117 Bilirubin.total [Mass/volume] in Serum or Plasma (test kquu=3194-2) <0.1 mg/dL 0.2-1.0 Calcium [Mass/volume] in Serum or Plasma (test mmjx=46828-2) 8.8 mg/dL 8.5-10.1 Protein [Mass/volume] in Serum or Plasma (test uuqs=8866-4) 6.8 g/dL 6.4-8.2 Albumin [Mass/volume] in Serum or Plasma by Bromocresol purple (BCP) dye binding meth (test uwbb=00666-3) 2.8 g/dL 3.4-5.0 Globulin (test code=GLOB) 4.0 g/dL 2.3-3.5 Albumin/Globulin Ratio (test code=A/G) 0.7 1.1-1.8 C reactive protein [Mass/volume] in Serum or [id number] 17:34:00* Test Item Value Reference Range Comments C reactive protein [Mass/volume] in Serum or Plasma (test aszz=6476-6) 3.72 mg/L <3.00 Complete blood count (CBC) with automated white blood cell (WBC) differential 2018-05-23 16:40:00* Test Item Value Reference Range Comments White blood cell count (test bnmx=OMB3374) 10.4 4.3-10.9 Blood erythrocytes count (number/volume) (test upnl=13841-0) 3.50 M/ul 4.33-5.43 Hemoglobin measurement (test qxqy=XSO6609) 9.9 g/dL 13.6-17.9 Blood hematocrit (volume fraction) (test wvzd=86112-3) 29.7 % 39.6-49.0 MCV (test jijb=59916-5) 84.9 fL 80-100 MCH (test cwnn=41344-1) 28.4 pg 27.0-35.0 MCHC (test code=MCHC) 33.5 g/dL 32.0-36.0 Platelets (test code=PLT) 694 152-406 Red Cell Distribution Width (test code=RDW) 16.6 % 12.1-15.2 Blood platelet mean volume (test cxwn=55714-7) 6.4 fL 7.6-11.3 Neutrophils % (test code=FLEX%) 77.6 % 41.7-73.7 Lymphocytes/leuk NFr Bld (test cuyh=98750-5) 12.0 % 15.3-44.8 Monocyte percentage (test kixi=7609-3) 7.5 % 3.3-12.3 Eosinophil % (test gewp=085-4) 1.9 % 0-4.4 Basophil % (test nylj=37968-0) 1.0 % 0-1.3 Absolute neutrophil count (test eavw=785-4) 8.1 1.8-8.0 Absolute lymphocyte count (test ltne=58331-2) 1.3 0.7-4.9 Absolute monocyte count (test phzu=121-2) 0.8 0.1-1.3 Absolute Eosinophils (test code=EOA) 0.2 0-0.5 Absolute Basophils (test code=BASA) 0.1 0-0.5
--- OUTSIDE RECORDS SUMMARY | 2018-12-15 07:23 | XMS REPORT ---
Author Author Chin Christian Organization [employer] Address Unknown Phone Unavailable Care Team Providers Care Chief Nursing Executive Name Role Phone Chin Christian CP Unavailable Allergies, Adverse Reactions, Alerts Substance Reaction Event Type N.K.D.A. 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 Active Assessment Coronary artery disease involving [place] coronary artery, angina presence unspecified, unspecified whether [place] or transplanted heart I25.10 Active Assessment Essential (primary) hypertension I10 Active Assessment TIA (transient ischemic attack) G45.9 Active Problem Ulcer L98.499 Active Problem Essential [...] H91.93 Active Problem Coronary artery disease involving [place] coronary artery, angina presence unspecified, unspecified whether [place] or transplanted heart I25.10 Active Problem Background [...] Instructions Start Date End Date Status Dosage [place] 3 [facility] 86745993433 1000 MG Orally Once a day Active 1 capsule Hemocyte Plus [facility] 44728523542 106-1 MG Orally three times a week as needed (prn) May 18, 2018 Active 1 capsule GlyBURIDE [facility] 09282434910 5 MG Active TAKE ONE (1) TABLET(S) BY MOUTH EVERY TWELVE HOURS. Zantac [facility] 48960239982 300 MG Orally Once a day Aug 31, 2018 Active 1 tablet Cholecalciferol [facility] [address]-96 1000 UNIT Orally Once a day Active 1 capsule Aspirin [facility] 87445876158 81 MG Orally Once a day Active 1 tablet Precose [facility] 77848347727 25 MG Orally Three times a day Active as directed Accu-Chek Polina Plus ND 0 - Active USE DIRECTED THREE TIMES A DAY. Tramadol HCl [facility] 40934573198 50 MG Orally every 6 hrs Active 1 tablet as needed Simvastatin ND 67603538285 40 MG Active TAKE ONE (1) TABLET(S) BY MOUTH EVERY NIGHT. Tylenol/Codeine #3 [facility] 02067015861 300-30 MG Orally as needed (prn) Jul 12, 2018 Active 1 tablet as needed Co Q 10 [facility] [address]378 200 MG Orally Once a day Active 1 capsule with a meal Thiamine HCl ND 0 500 MG Orally Active not defined Clopidogrel Bisulfate [facility] 08010072852 75 mg Orally Once a day Active 1 tablet Vital Signs Date/Time: Aug 31, 2018 BMI 24.18 Index Weight 147.1 lbs Height 65.4 in Temperature 96.1 F Cardiac Monitoring Heart Rate 81 /min Blood Pressure Diastolic 71 mm Hg Blood Pressure Systolic 149 mm Hg Results No Known Results Summary Purpose eClinicalWorks Submission
--- OUTSIDE RECORDS SUMMARY | 2018-12-15 07:23 | XMS REPORT ---
Author Author Chin Christian Organization [employer] Address Unknown Phone Unavailable Care Team Providers Care Tire Man Name Role Phone Chin Christian CP Unavailable Allergies, Adverse Reactions, Alerts Substance Reaction Event Type N.K.D.A. 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 Assessment Mixed hyperlipidemia E78.2 Active Assessment Hx of heart artery stent Z95.5 Active Assessment Aortic stenosis I35.0 Active Assessment Diverticulosis of large intestine without hemorrhage K57.30 Active Assessment Hx TIA/stroke w/o resid Z86.73 Active Assessment Left bundle branch block I44.7 Active Assessment 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 by examination, associated with type 2 diabetes mellitus E11.319 Active Assessment 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 Active Problem Vertebral artery stenosis with cerebral infarction I63.219 Active Assessment Coronary artery disease involving [place] coronary artery, angina presence unspecified, unspecified whether [place] or transplanted heart I25.10 Active Problem 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 Assessment Essential (primary) hypertension I10 Active Problem S/P AVR (aortic valve replacement) Z95.2 Active Problem Peripheral vascular disease in diabetes mellitus E11.51 Active Problem Type 2 diabetes 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 Active Problem Other chronic pain G89.29 Active Problem Gastroesophageal reflux disease, esophagitis presence not specified K21.9 Active Problem Essential (primary) hypertension I10 Active Assessment 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 other type, unspecified laterality E13.3219 Active Problem Hx TIA/stroke w/o resid Z86.73 Active Assessment Encounter for annual general medical examination with abnormal findings in adult Z00.01 Active Assessment Anemia due to chronic blood loss D50.0 Active Problem 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 other type, unspecified laterality E13.3219 Active Assessment Gastroesophageal reflux disease, esophagitis presence not specified K21.9 Active Problem 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 Active Assessment Other chronic pain G89.29 Active Problem Bilateral hearing loss, unspecified hearing loss type H91.93 Active Assessment Encounter for screening Z13.9 Active Problem Anemia due to chronic blood loss D50.0 Active Assessment Type 2 diabetes 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 Active Problem 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 by examination, associated with type 2 diabetes mellitus E11.319 Active Assessment S/P AVR (aortic valve replacement) Z95.2 Active Problem Coronary artery disease involving [place] coronary artery, angina presence unspecified, unspecified whether [place] or transplanted heart I25.10 Active Assessment Peripheral vascular disease in diabetes mellitus E11.51 Active Problem Diverticulosis of large intestine without hemorrhage K57.30 Active Assessment 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 [address]-77 1000 UNIT Orally Once a day Active 1 capsule Thiamine HCl ND 0 500 MG Orally Active not defined Lipitor ND 37134868578 40 MG Active TAKE ONE (1) TABLET(S) BY MOUTH AT BEDTIME. Precose [facility] 82065161337 25 MG Orally Three times a day Active as directed Accu-Chek Polina Plus NDC 0 - Active USE DIRECTED THREE TIMES A DAY. Co Q [address] [facility] [address] 200 MG Orally Once a day Active 1 capsule with a meal GlyBURIDE ND 65049169460 5 MG Active TAKE ONE (1) TABLET(S) BY MOUTH EVERY TWELVE HOURS. Tramadol HCl [facility] 39537270400 50 MG Orally every 6 hrs Active 1 tablet as needed Tylenol/Codeine #[address] [facility] 24080401259 300-30 MG Orally as needed (prn) Jul 12, 2018 Active 1 tablet as needed Zantac [facility] 33684330877 300 MG Orally Once a day Aug 31, 2018 Active [address] [facility] 60302777685 40 MG Active TAKE ONE (1) TABLET(S) BY MOUTH EVERY NIGHT. Hemocyte Plus [facility] 99834453654 106-1 MG Orally Once a day Active 1 capsule [place] [address] [facility] 31601645149 1000 MG Orally Once a day Active [address] [facility] 29803257924 81 MG Orally Once a day Active 1 tablet Clopidogrel Bisulfate [facility] 13443598066 75 mg Orally Once a day Active 1 tablet Vital Signs Date/Time: Dec 02, 2018 BMI 25.05 Index Weight 152.4 lbs Height 65.4 in Temperature 96.4 F Cardiac Monitoring Heart Rate 79 /min Blood Pressure Diastolic 64 mm Hg Blood Pressure Systolic 136 mm Hg Results No Known Results Summary Purpose eClinicalWorks Submission
[2018-12-15 11:00] VITALS: BP 134/64
== END | disposition home or self-care (01) ==
LOC: OR 07:18 → EDSEX 07:18
PROVIDERS: ATTEND Ophthalmology
DX: H25.11 Age-related nuclear cataract, right eye (principal); E11.9 Type 2 diabetes mellitus without complications; I10 Essential (primary) hypertension; I45.10 Unspecified right bundle-branch block; E78.5 Hyperlipidemia, unspecified; I25.10 Atherosclerotic heart disease of native coronary artery without angina pectoris; Z01.810 Encounter for preprocedural cardiovascular examination; Z01.812 Encounter for preprocedural laboratory examination; Z79.02 Long term (current) use of antithrombotics/antiplatelets; Z79.82 Long term (current) use of aspirin; Z79.4 Long term (current) use of insulin; Z95.2 Presence of prosthetic heart valve; Z89.429 Acquired absence of other toe(s), unspecified side; Z89.511 Acquired absence of right leg below knee
CPT/HCPCS: 36415 ×2; 66982; 80048; 82948; 85025; 93005; J0171; J2001 ×2; J2250; J2704